=== PATIENT | male | born 1935 | race Caucasian/White ===

== ENCOUNTER 2023-03-20 10:00 | Outpatient (CLI) | payer MEDICARE, SELFPAY | END 2023-03-20 10:01 | disposition home or self-care (01) | LOC: NFLDREF 03-23 03:21 | PROVIDERS: PCP Family Medicine; Referring Provider Family Medicine; Visit Provider Family Medicine | DX: C61 Malignant neoplasm of prostate (principal); I25.10 Atherosclerotic heart disease of native coronary artery without angina pectoris; I10 Essential (primary) hypertension; M16.11 Unilateral primary osteoarthritis, right hip; E78.5 Hyperlipidemia, unspecified; D64.9 Anemia, unspecified; Z12.5 Encounter for screening for malignant neoplasm of prostate | CPT/HCPCS: 80053; 80061; 84153 ==

== ENCOUNTER 2023-09-13 13:25 | Outpatient (CLI) | payer MEDICARE, SELFPAY ==
--- OUTSIDE RECORDS SUMMARY | 2023-09-13 13:28 | XMS_ITS | Continuity of Care Document ---
Author Name [facility] Organization [facility] Care Team Providers Care Consulting Psychologist Name Role Phone [facility] Unavailable Unavailable Problems Combined list of problems from Department of Defense and Veterans Affairs facilities. It does not include entries that were removed or entered in error. 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 Raymon Herbert, [facility]. Estrada,[facility] HeartOct 2011 Entered By: LISA DE Comment: Urology- Dr. Gómez [facility] Coronary arteriosclerosis Active Condition Jul 08 6 Entered By: LISA DE Comment: 2002 PTCA ? target. F.C.I [facility] Erectile Dysfunction * (ICD-9-CM 302.72) Active Condition [facility] Hyperlipidemia Active Condition [facility] Hypertensive disorder Active Condition [facility] Obstructive sleep apnea syndrome (SNOMED CT [id number]) Active Condition [facility] Personal History of Colonic Polyps Active Condition Nov 12, 2007 Entered By: PATRICIA SANDS Comment: Colonoscopy 10/2007 [facility] Sensorineural Hearing Loss * (ICD-9-CM 389.10) Active Condition [facility] Sleep apnea Active Condition [facility] Diagnosis: ICD-10-CM 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 Medication Details Route Status Patient Instructions Prescription Expires Prescription Number Last Dispense Date Ordering Provider Order Date Order Qty Source AMLODIPINE BESYLATE 5MG TAB TAKE ONE TABLET BY MOUTH EVERY DAY ORALLY ACTIVE 02/02/2024 [id number] ELVIN LÓPEZ 2022 90 [facility] AMLODIPINE BESYLATE 5MG TAB TAKE ONE TABLET BY MOUTH EVERY DAY ORALLY DISCONT INUED 05/03/2023 [id number] ELVIN LÓPEZ 2021 90 [facility] ASCORBIC ACID 500MG TAB TAKE TWO TABLETS BY MOUTH EVERY DAY ORALLY ACTIVE Zamzam DE E 2012 [facility] ASPIRIN 81MG TAB,EC TAKE ONE TABLET BY MOUTH ORALLY ACTIVE ELVIN LÓPEZ 2020 [facility] ATORVASTATI N CA 80MG TAB TAKE ONE TABLET BY MOUTH DAILY FOR CHOLESTE ROL ORALLY ACTIVE 05/19/2024 [id number] ELVIN LÓPEZ 2022 90 [facility] ATORVASTATI N CA 80MG TAB TAKE ONE TABLET BY MOUTH DAILY FOR CHOLESTE ROL ORALLY DISCONT INUED 03/10/2023 [id number] ELVIN LÓPEZ 2022 90 [facility] CALCIUM CITRATE 315MG/VITAM IN D 250UNT TAB TAKE ONE TABLET BY MOUTH EVERY DAY ORALLY ACTIVE Zamzam DE E 2015 [facility] CETIRIZINE TAB TAKE ACTIVE ELVIN LÓPEZ 2020 [facility] EZETIMIBE 10MG TAB TAKE ONE TABLET BY MOUTH EVERY DAY FOR CHOLESTE ROL ORALLY ACTIVE 08/07/2024 [id number] ELVIN LÓPEZ 2023 90 [facility] EZETIMIBE 10MG TAB TAKE ONE TABLET BY MOUTH EVERY DAY FOR CHOLESTE ROL ORALLY DISCONT INUED 09/14/2023 [id number] ELVIN LÓPEZ 2022 90 [facility] FERROUS SULFATE TAB TAKE 65MG 2 TABS BY MOUTH EVERY DAY ORALLY ACTIVE Zamzam DE 2015 [facility] GLUCOSAMINE CAP/TAB TAKE BY MOUTH EVERY DAY ORALLY ACTIVE Zamzam DE [address] [facility] INCONT LINER DEPEND GUARDS USE 1 PAD DIRECTED MISCEL LANEOU S ACTIVE 05/19/2024 [id number] MOLINA AG NDE Y 2023 104 [facility] INCONT LINER DEPEND GUARDS USE 1 PAD DIRECT[address] MISCEL L[address]OU S DISCONT INUED 04/13/2023 [id number] MOLINA AG NDE Y 2021 104 [facility] ISOSORBIDE MONONITRATE 30MG TAB,SA TAKE ONE TABLET BY MOUTH EVERY DAY ORALLY ACTIVE ELVIN LÓPEZ 2022 [facility] [place] POTASSIUM 100MG TAB TAKE ONE TABLET BY MOUTH EVERY DAY FOR BLOOD PRESSURE ORALLY SUSPEND ED 05/19/2024 [id number] ELVIN LÓPEZ 2023 90 [facility] [place] POTASSIUM 100MG TAB TAKE ONE TABLET BY MOUTH EVERY DAY FOR BLOOD PRESSURE ORALLY DISCONT INUED 05/19/2023 [id number] ELVIN LÓPEZ 2021 90 [facility] LUTEIN CAP/TAB TAKE BY MOUTH EVERY DAY ORALLY ACTIVE Zamzam DE 2015 [facility] LYSINE TAB TAKE ACTIVE DOMINIC RICHARD 2008 [facility] MULTIVITAMI N/MINERALS SENIOR FORMULA TAB TAKE ONE TABLET BY MOUTH EVERY DAY ORALLY ACTIVE Zamzam DE E 2015 [facility] Allergies, Adverse Reactions, Alerts Combined list of allergies from Department of [facility] and [facility] facilities. It does not include entries that were removed or entered in error. Substance Category Reaction Severity Reaction type Status Date Reported Comments Source LISINOPRIL Propensity to adverse reactions to drug (finding) active 8 [facility] TRAZODONE Propensity to adverse reactions to drug (finding) Nightmares active 8 [facility] Immunizations Combined list of available immunizations from the Department of [facility] and Veterans [facility] facilities. 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 Source INFLUENZA, HIGH-DOSE, QUADRIVALENT 2022 197 complet [facility] RSV, RECOMBINANT, PROTEIN SUBUNIT RSVPREF, ADJUVANT RECONSTITUTED , 0.5 ML, PF 2022 303 complet [facility] COVID-19 (MODERNA), MRNA, LNP-S, PF, 50 MCG/0.5 ML (AGES 12+ YEARS) 2022 312 complet [facility] TDAP 2021 115 complet [facility] COVID-19 (PFIZER), MRNA, LNP-S, BIVALENT, PF, 30 MCG/0.3 ML DOSE 2021 300 complet [facility] INFLUENZA, HIGH-DOSE, QUADRIVALENT 2021 197 complet [facility] INFLUENZA, UNSPECIFIED FORMULATION 2021 88 complet [facility] COVID-19 (PFIZER), MRNA, LNP-S, PF, 30 MCG/0.3 ML DOSE, MORGAN-SUCROSE (AGES 12+ YEARS) 2021 217 complet [facility] INFLUENZA, HIGH-DOSE, QUADRIVALENT 2020 197 complet [facility] INFLUENZA, UNSPECIFIED FORMULATION 2020 88 complet [facility] COVID-19 (PFIZER), MRNA, LNP-S, PF, 30 MCG/0.3 ML DOSE 3 2020 208 complet [facility] TD (ADULT), 2 LF TETANUS TOXOID, PRESERVATIVE FREE, ADSORBED 2020 09 complet ed [employer],U [id number], [id number] [facility] COVID-19 (PFIZER), MRNA, LNP-S, PF, 30 MCG/0.3 ML DOSE 2 2020 208 complet ed [facility] COVID-19 (PFIZER), MRNA, LNP-S, PF, 30 MCG/0.3 ML DOSE 1 2020 208 complet ed [facility] INFLUENZA, INJECTABLE, QUADRIVALENT, PRESERVATIVE FREE 2019 150 complet ed [facility] INFLUENZA, UNSPECIFIED FORMULATION 2019 88 complet ed [facility] ZOSTER RECOMBINANT 2 2018 187 complet ed [facility] INFLUENZA, HIGH DOSE SEASONAL 2018 135 complet ed [facility] INFLUENZA, SEASONAL, INJECTABLE 2018 141 complet ed [facility] ZOSTER RECOMBINANT 2018 187 complet ed [facility] ZOSTER RECOMBINANT 1 2018 187 complet ed [facility] INFLUENZA, HIGH DOSE SEASONAL 2017 135 complet ed [facility] INFLUENZA, HIGH DOSE SEASONAL 2017 135 complet ed [facility] INFLUENZA, HIGH DOSE SEASONAL 2016 135 complet ed [facility] INFLUENZA, HIGH DOSE SEASONAL 2015 135 complet ed [facility] PNEUMOCOCCAL CONJUGATE PCV 13 2015 133 complet ed [facility],M20 640,09/05 [facility] INFLUENZA, INJECTABLE, QUADRIVALENT 2014 158 complet ed [facility] INFLUENZA, HIGH DOSE SEASONAL 2014 135 complet ed [facility] INFLUENZA, UNSPECIFIED FORMULATION 2013 88 complet ed [facility] INFLUENZA, UNSPECIFIED FORMULATION 2012 88 complet ed [facility] INFLUENZA, SEASONAL, INJECTABLE, PRESERVATIVE FREE 2011 140 complet ed [facility] INFLUENZA, UNSPECIFIED FORMULATION 2011 88 complet ed [facility] INFLUENZA, UNSPECIFIED FORMULATION 2010 88 complet ed [facility] TDAP 2010 115 complet ed [facility] ZOSTER LIVE 2010 121 complet ed [facility] INFLUENZA, UNSPECIFIED FORMULATION 2009 88 complet ed [facility] INFLUENZA, UNSPECIFIED FORMULATION 2008 88 complet ed [facility] PNEUMOCOCCAL, UNSPECIFIED FORMULATION 2007 109 complet ed [facility] PNEUMOCOCCAL POLYSACCHARID E PPV23 2007 33 complet ed [facility] TD (ADULT), 2 LF TETANUS TOXOID, PRESERVATIVE FREE, ADSORBED 2007 09 complet ed [facility] TD (ADULT), 5 LF TETANUS TOXOID, PRESERVATIVE FREE, ADSORBED 2006 113 complet ed [facility] TD(ADULT) UNSPECIFIED FORMULATION 2006 139 complet ed [facility] INFLUENZA (HISTORICAL) 2006 88 complet ed [facility] INFLUENZA, SEASONAL, INJECTABLE 2005 141 complet ed [facility] INFLUENZA, SEASONAL, INJECTABLE 2003 141 complet ed [facility] INFLUENZA, SEASONAL, INJECTABLE 2002 141 complet ed [facility] Results Combined list of recent chemistry, hematology and other laboratory results from Department of Defense and Veterans Affairs, ranging from 15 months to all on record, depending upon the facility. Order Name Results Value Reference Range Date Interpretation Specimen Comments Source CBC LEUKOCYTES [#/VOLUME] IN BLOOD BY AUTOMATED COUNT 5.82 4.0 - 11.0 06/29 Specimen Type: BLOOD No comment entered. Ordering Provider: VERONICA LÓPEZ Report Released Date/Time: Jun 29, 2022 10:25 AM Reporting Lab: [facility] [place] [address] Performing Lab: [facility] [place] [address] [facility] CBC ERYTHROCYTE S [#/VOLUME] IN BLOOD BY AUTOMATED COUNT 4.44 4.6 - 6.2 06/29 L Specimen Type: BLOOD No comment entered. Ordering Provider: VERONICA LÓPEZ Report Released Date/Time: Jun 29, 2022 10:25 AM Reporting Lab: [facility] [place] [address] Performing Lab: [facility] [place] [address] [place] [facility] CBC HEMOGLOBIN [MASS/VOLUM E] IN BLOOD 13.2 13.5 - 17.9 06/29 L Specimen Type: BLOOD No comment entered. Ordering Provider: VERONICA LÓPEZ Report Released Date/Time: Jun 29, 2022 10:25 AM Reporting Lab: [facility] [place] [address] Performing Lab: [facility] [place] [address] [place] [facility] CBC HEMATOCRIT [VOLUME FRACTION] OF BLOOD BY AUTOMATED COUNT 39.8 41 - 54 06/29 L Specimen Type: BLOOD No comment entered. Ordering Provider: VERONICA LÓPEZ Report Released Date/Time: Jun 29, 2022 10:25 AM Reporting Lab: [facility] [place] [address] Performing Lab: [facility] [place] [address] [place] [facility] CBC MCV [ENTITIC VOLUME] BY AUTOMATED COUNT 89.6 80 - 100 06/29 Specimen Type: BLOOD No comment entered. Ordering Provider: VERONICA LÓPEZ Report Released Date/Time: Jun 29, 2022 10:25 AM Reporting Lab: [facility] [place] [address] Performing Lab: [facility] [place] [address] [place] [facility] CBC MCH [ENTITIC MASS] BY AUTOMATED COUNT 29.7 27 - 33 06/29 Specimen Type: BLOOD No comment entered. Ordering Provider: VERONICA LÓPEZ Report Released Date/Time: Jun 29, 2022 10:25 AM Reporting Lab: [facility] [place] [address] Performing Lab: [facility] [place] [address] [place] [facility] CBC MCHC [MASS/VOLUM E] BY AUTOMATED COUNT 33.2 32.0 - 37.5 06/29 Specimen Type: BLOOD No comment entered. Ordering Provider: VERONICA LÓPEZ Report Released Date/Time: Jun 29, 2022 10:25 AM Reporting Lab: [facility] [place] [address] Performing Lab: [facility] [place] [address] [place] [facility] CBC PLATELETS [#/VOLUME] IN BLOOD BY AUTOMATED COUNT 201 150 - 400 06/29 Specimen Type: BLOOD No comment entered. Ordering Provider: VERONICA LÓPEZ Report Released Date/Time: Jun 29, 2022 10:25 AM Reporting Lab: [facility] [place] [address] Performing Lab: [facility] [place] [address] [place] [facility] CBC PLATELET MEAN VOLUME [ENTITIC VOLUME] IN BLOOD BY AUTOMATED COUNT 10.1 7.4 - 10.4 06/29 Specimen Type: BLOOD No comment entered. Ordering Provider: VERONICA LÓPEZ Report Released Date/Time: Jun 29, 2022 10:25 AM Reporting Lab: [facility] [place] [address] Performing Lab: [facility] [place] [address] [place] [facility] CBC ERYTHROCYTE DISTRIBUTIO N WIDTH [RATIO] BY AUTOMATED COUNT 15.4 11.5 - 14.5 06/29 H Specimen Type: BLOOD No comment entered. Ordering Provider: VERONICA LÓPEZ Report Released Date/Time: Jun 29, 2022 10:25 AM Reporting Lab: [facility] [place] [address] Performing Lab: [facility] [place] [address] [place] [facility] COMPREHEN SIVE METABOLIC PANEL+MG CREATININE [MASS/VOLUM E] IN SERUM OR PLASMA 0.8 0.7 - 1.2 06/29 Specimen Type: PLASMA No comment entered. Ordering Provider: VERONICA LÓPEZ Report Released Date/Time: Jun 29, 2022 10:25 AM Reporting Lab: [facility] [place] [address] Performing Lab: [facility] [place] [address] [place] [facility] COMPREHEN SIVE METABOLIC PANEL+MG UREA NITROGEN [MASS/VOLUM E] IN SERUM OR PLASMA 23 8 - 26 06/29 Specimen Type: PLASMA No comment entered. Ordering Provider: VERONICA LÓPEZ Report Released Date/Time: Jun 29, 2022 10:25 AM Reporting Lab: [facility] [place] [address] Performing Lab: [facility] [place] [address] [place] [facility] COMPREHEN SIVE METABOLIC PANEL+MG GLUCOSE [MASS/VOLUM E] IN SERUM OR PLASMA 88 70 - 100 06/29 Specimen Type: PLASMA No comment entered. Ordering Provider: VERONICA LÓPEZ Report Released Date/Time: Jun 29, 2022 10:25 AM Reporting Lab: [facility] [place] [address] Performing Lab: [facility] [place] [address] [place] [facility] COMPREHEN SIVE METABOLIC PANEL+MG SODIUM [MOLES/VOLU ME] IN SERUM OR PLASMA 139 136 - 145 06/29 Specimen Type: PLASMA No comment entered. Ordering Provider: VERONICA LÓPEZ Report Released Date/Time: Jun 29, 2022 10:25 AM Reporting Lab: [facility] [place] [address] Performing Lab: [facility] [place] [address] [place] [facility] COMPREHEN SIVE METABOLIC PANEL+MG POTASSIUM [MOLES/VOLU ME] IN SERUM OR PLASMA 4.2 3.5 - 5.1 06/29 Specimen Type: PLASMA No comment entered. Ordering Provider: VERONICA LÓPEZ Report Released Date/Time: Jun 29, 2022 10:25 AM Reporting Lab: [facility] [place] [address] Performing Lab: [facility] [place] [address] [place] [facility] COMPREHEN SIVE METABOLIC PANEL+MG CHLORIDE [MOLES/VOLU ME] IN SERUM OR PLASMA 109 98 - 107 06/29 H Specimen Type: PLASMA No comment entered. Ordering Provider: VERONICA LÓPEZ Report Released Date/Time: Jun 29, 2022 10:25 AM Reporting Lab: [facility] [place] [address] Performing Lab: [facility] [place] [address] [place] [facility] COMPREHEN SIVE METABOLIC PANEL+MG CARBON DIOXIDE, TOTAL [MOLES/VOLU ME] IN SERUM OR PLASMA 23 22 - 29 06/29 Specimen Type: PLASMA No comment entered. Ordering Provider: VERONICA LÓPEZ Report Released Date/Time: Jun 29, 2022 10:25 AM Reporting Lab: [facility] [place] [address] Performing Lab: [place] [address] [place] [facility] COMPREHEN SIVE METABOLIC PANEL+MG CALCIUM [MASS/VOLUM E] IN SERUM OR PLASMA 9.3 8.4 - 10.2 06/29 Specimen Type: PLASMA No comment entered. Ordering Provider: VERONICA LÓPEZ Report Released Date/Time: Jun 29, 2022 10:25 AM Reporting Lab: [place] [address] Performing Lab: [place] [address] [place] [facility] COMPREHEN SIVE METABOLIC PANEL+MG PROTEIN [MASS/VOLUM E] IN SERUM OR PLASMA 6.7 6.0 - 8.3 06/29 Specimen Type: PLASMA No comment entered. Ordering Provider: VERONICA LÓPEZ Report Released Date/Time: Jun 29, 2022 10:25 AM Reporting Lab: [facility] [place] [address] Performing Lab: [facility] [place] [address] [place] [facility] COMPREHEN SIVE METABOLIC PANEL+MG ALBUMIN [MASS/VOLUM E] IN SERUM OR PLASMA 3.8 3.5 - 5.2 06/29 Specimen Type: PLASMA No comment entered. Ordering Provider: VERONICA LÓPEZ Report Released Date/Time: Jun 29, 2022 10:25 AM Reporting Lab: [facility] [place] [address] Performing Lab: [facility] [place] [address] [place] [facility] COMPREHEN SIVE METABOLIC PANEL+MG BILIRUBIN.T OTAL [MASS/VOLUM E] IN SERUM OR PLASMA 0.4 0.2 - 1.2 06/29 Specimen Type: PLASMA No comment entered. Ordering Provider: VERONICA LÓPEZ Report Released Date/Time: Jun 29, 2022 10:25 AM Reporting Lab: [facility] [place] [address] Performing Lab: [facility] [place] [address] [place] [facility] COMPREHEN SIVE METABOLIC PANEL+MG MAGNESIUM [MASS/VOLUM E] IN SERUM OR PLASMA 2.2 1.6 - 2.6 06/29 Specimen Type: PLASMA No comment entered. Ordering Provider: VERONICA LÓPEZ Report Released Date/Time: Jun 29, 2022 10:25 AM Reporting Lab: [facility] [place] [address] Performing Lab: [facility] [place] [address] [place] [facility] COMPREHEN SIVE METABOLIC PANEL+MG ANION GAP IN SERUM OR PLASMA 7 5 - 15 06/29 Specimen Type: PLASMA No comment entered. Ordering Provider: VERONICA LÓPEZ Report Released Date/Time: Jun 29, 2022 10:25 AM Reporting Lab: [facility] [place] [address] Performing Lab: [facility] [place] [address] [place] [facility] COMPREHEN SIVE METABOLIC PANEL+MG ALKALINE PHOSPHATASE [ENZYMATIC ACTIVITY/VO LUME] IN SERUM OR PLASMA 92 40 - 150 06/29 Specimen Type: PLASMA No comment entered. Ordering Provider: VERONICA LÓPEZ Report Released Date/Time: Jun 29, 2022 10:25 AM Reporting Lab: [facility] [place] [address] Performing Lab: [facility] [place] [address] [place] [facility] COMPREHEN SIVE METABOLIC PANEL+MG ALANINE AMINOTRANSF ERASE [ENZYMATIC ACTIVITY/VO LUME] IN SERUM OR PLASMA 18 <55 - 55 06/29 Specimen Type: PLASMA No comment entered. Ordering Provider: VERONICA LÓPEZ Report Released Date/Time: Jun 29, 2022 10:25 AM Reporting Lab: [facility] [place] [address] Performing Lab: [facility] [place] [address] [place] [facility] COMPREHEN SIVE METABOLIC PANEL+MG ASPARTATE AMINOTRANSF ERASE [ENZYMATIC ACTIVITY/VO LUME] IN SERUM OR PLASMA 21 <34 - 34 06/29 Specimen Type: PLASMA No comment entered. Ordering Provider: VERONICA LÓPEZ Report Released Date/Time: Jun 29, 2022 10:25 AM Reporting Lab: [facility] [place] [address] Performing Lab: [facility] [place] [address] [place] [facility] COMPREHEN SIVE METABOLIC PANEL+MG GLOMERULAR FILTRATION RATE/1.73 SQ M.PREDICTED [VOLUME RATE/AREA] IN SERUM, PLASMA OR BLOOD BY CREATININE- BASED FORMULA (CKD-EPI) 87 60 06/29 Specimen Type: PLASMA No comment entered. Ordering Provider: VERONICA LÓPEZ Report Released Date/Time: Jun 29, 2022 10:25 AM Reporting Lab: [facility] [place] [address] Performing Lab: [facility] [place] [address] [place] [facility] HEMOGLOBI N A1C HEMOGLOBIN A1C/HEMOGLO BIN.TOTAL IN BLOOD 5.9 4.0 - 6.0 06/29 Specimen Type: BLOOD Comment: Values obtained from A1C measurement s can vary. For typical A1C assays, a reported value of 7.0 could actually be between 6.7 and 7.3 if measured by a reference method. A reported value of 9.0 could actually be between 8.7 and 9.3. Ref: http://[email or web address] ngsp.org/[place] Pdata.asp Ordering Provider: VERONICA LÓPEZ Report Released Date/Time: Jun 29, 2022 10:25 AM Reporting Lab: [facility] [place] [address] Performing Lab: [facility] [place] [address] [place] [facility] PSA PROSTATE SPECIFIC AG [MASS/VOLUM E] IN SERUM OR PLASMA 0.07 <4.00 - 4.00 06/29 Specimen Type: SERUM No comment entered. Ordering Provider: VERONICA LÓPEZ Report Released Date/Time: Jun 29, 2022 10:25 AM Reporting Lab: [facility] [place] [address] Performing Lab: [facility] [place] [address] [place] [facility] LIPID PANEL,NON -FASTING CHOLESTEROL [MASS/VOLUM E] IN SERUM OR PLASMA 176 <199 - 199 06/29 Specimen Type: PLASMA No comment entered. Ordering Provider: VERONICA LÓPEZ Report Released Date/Time: Jun 29, 2022 02:27 PM Reporting Lab: [facility] [place] [address] Performing Lab: [facility] [place] [address] [place] [facility] LIPID PANEL,NON -FASTING CHOLESTEROL IN HDL [MASS/VOLUM E] IN SERUM OR PLASMA 66 40 06/29 Specimen Type: PLASMA No comment entered. Ordering Provider: VERONICA LÓPEZ Report Released Date/Time: Jun 29, 2022 02:27 PM Reporting Lab: [facility] [place] [address] Performing Lab: [facility] [place] [address] [place] [facility] LIPID PANEL,NON -FASTING CHOLESTEROL IN LDL [MASS/VOLUM E] IN SERUM OR PLASMA BY CALCULATION 93 <99 - 99 06/29 Specimen Type: PLASMA No comment entered. Ordering Provider: VERONICA LÓPEZ Report Released Date/Time: Jun 29, 2022 02:27 PM Reporting Lab: [facility] [place] [address] Performing Lab: [facility] [place] [address] [place] [facility] LIPID PANEL,NON -FASTING CHOLESTEROL IN VLDL [MASS/VOLUM E] IN SERUM OR PLASMA BY CALCULATION 17 <29 - 29 06/29 Specimen Type: PLASMA No comment entered. Ordering Provider: VERONICA LÓPEZ Report Released Date/Time: Jun 29, 2022 02:27 PM Reporting Lab: [facility] [place] [address] Performing Lab: [facility] [place] [address] [place] [facility] LIPID PANEL,NON -FASTING CHOLESTEROL NON HDL [MASS/VOLUM E] IN SERUM OR PLASMA 110 <129 - 129 06/29 Specimen Type: PLASMA No comment entered. Ordering Provider: VERONICA LÓPEZ Report Released Date/Time: Jun 29, 2022 02:27 PM Reporting Lab: [facility] [place] [id number] Performing Lab: [facility] [place] [address] [place] [facility] LIPID PANEL,NON -FASTING TRIGLYCERID E [MASS/VOLUM E] IN SERUM OR PLASMA 86 <149 - 149 06/29 Specimen Type: PLASMA No comment entered. Ordering Provider: VERONICA LÓPEZ Report Released Date/Time: Jun 29, 2022 02:27 PM Reporting Lab: [facility] [place] [id number] Performing Lab: [facility] [place] [address] [place] [facility] Vital Signs Combined list of inpatient and outpatient Vital Signs from Department of Defense and Veterans Affairs, ranging from 12 months to all on record, depending upon the facility. Vital Sign Value Date Comments Source Encounters Combined list of: 1) Encounters from Department of Veterans Affairs facilities going back up to thelast 18 months. 2) Encounters from the Department of Defense facilities going back up to 280 months. Location Location Details Encounter Type Encounter Number Reason For Visit Attending Provider ADM Date DC Date Status Disposition Source [place] [facility] Outpatient Encounter [id number] 03/12 [facility] [place] [facility] Outpatient Encounter [id number] 03/14 [place] [facility] [place] [facility] Outpatient Encounter [id number] 03/24 [place] [facility] [place] [facility] Outpatient Encounter [id number] 03/28 [place] [facility] [place] [facility] Outpatient Encounter [id number] 04/06 [place] [facility] [place] [facility] Outpatient Encounter [id number] 04/12 [place] [facility] [place] [facility] Outpatient Encounter [id number] 04/21 [place] [facility] [place] [facility] Outpatient Encounter [id number] 05/18 [place] [facility] [place] [facility] Outpatient Encounter [id number] 06/[address] 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
Kaden LÓPEZ 06/29 [place] [facility] [place] [facility] Outpatient Encounter [id number] 07/20 [place] [facility] [place] [facility] SELF CARE MNGMENT TRAINING [id number] Diagnos is: ICD-10- CM N39.3 Stress inconti nence (female ) (male)< br/> KEENA MATUTE 08/[address] [facility] Outpatient Encounter [id number] 08/[address] [facility] SELF CARE MNGMENT TRAINING [id number] Diagnos is: ICD-10- CM N39.46 Mixed inconti nence<b r/> KEENA MATUTE 08/[address] [facility] SELF CARE MNGMENT TRAINING [id number] Diagnos is: ICD-10- CM N39.46 Mixed inconti nence<b r/> KEENA MATUTE 09/[address] [facility] Outpatient Encounter [id number] 09/[address] [facility] SELF CARE MNGMENT TRAINING [id number] Diagnos is: ICD-10- CM N39.46 Mixed inconti nence<b r/> KEENA MATUTE 09/21 [facility] IS [facility] SELF CARE MNGMENT TRAINING [id number] Diagnos is: ICD-10- CM N39.46 Mixed inconti nence<b r/> GIOVANIKEENA WALLERY Warren 10/19 [place] [facility] [place] [facility] Outpatient Encounter [id number] 02/23 [place] [facility] [place] [facility] Outpatient Encounter [id number] 03/03 [place] [facility] [place] [facility] Outpatient Encounter [id number] 05/01 [place] [facility] [place] [facility] Outpatient Encounter [id number] 05/08 [place] [facility] [place] [facility] Outpatient Encounter [id number] 05/10 [place] [facility] [place] [facility] Outpatient Encounter [id number] 05/[address] 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
Kaden LÓPEZ 08/06 [facility] Social History Combined list of available smoking, tobacco, and other social history from Department of Defense and [facility] Affairs facilities. Social History Type Response Date Comment Sourc e Tobacco smoking status ALIS [facility]-TOBACCO FORMER USER 08/07/2023 [facility] of [facility] OR MORE 08/07/2023 [facility] History of tobacco use AK-TOBACCO FORMER USER 06/29/2022 [facility] History of tobacco use AK-TOBACCO FORMER USER 05/07/2021 [facility] History of tobacco use AK-TOBACCO FORMER USER 09/20/2018 [facility] History of tobacco use FORMER TOBACCO US ER 7Y OR GREATER 07/25/2017 [facility] History of tobacco use FORMER TOBACCO US ER 7Y OR GREATER 07/08/2015 [facility] History of tobacco use FORMER TOBACCO US ER 7Y OR GREATER 04/22/2014 [facility] History of tobacco use FORMER TOBACCO US ER 7Y OR GREATER 11/12/2007 [facility] Plan of Care List of future care activities from Department [facility] facilities. Additional future care activities may be listed in the Assessment and Plan section. Date/Time Care Activity Care Activity Detail Facili ty 08/07/2023 Consult Order SLEEP [facility] IC OUTPT Cons Nail Kegger's Choice [facility] Advance Directives List of completed, amended, or rescinded Advance Directives on record at [facility] facilities. An actual copy of the Directive is not included. Date Advance Directive Provider Source 08/04/2007 ADVANCE DIRECTIVE SOHAM AU [facility]
--- OUTSIDE RECORDS SUMMARY | 2023-09-13 13:28 | XMS_ITS | Clinical Summary ---
Author Name Unknown Organization [facility] Address [place], [place] [address] Care Team Providers Care Manager Star Name Role Phone Trip Villalobos MD Primary Care Provider [phone] Allergies Active Allergy Reactions Criticality Noted Date Comments Lisinopril Cough 07/27/2018 Dry cough Trazodone *Unknown 03/28/2023 Unlisted Allergen (Include Detail In Comments) *Unknown,*Unknown - Follow up needed 03/10/2016 Medications Medication Sig Dispensed Refills Start Date End Date Status ASPIRIN 81 MG TAB, DELAYED RELEASE one tablet daily 0 03/01/2008 Active L-LYSINE 500 MG TAB one tablet daily 0 03/01/2008 Active CITRACAL + D 250 MG-200 UNIT TAB 0 03/01/2008 Active multivitamin (MVI) tablet Take 1 tablet by mouth once daily. 0 12/15/2012 Active nitroglycerin (NITROSTAT) 0.[address] 1 tablet under the tongue every 5 minutes if needed for Chest Pain. 0 12/15/2012 Active amLODIPine (NORVASC) 5 mg tablet Take 5 mg by mouth once daily. 12/14/2016 Active atorvastatin (LIPITOR) 80 mg tabletIndications:Pure hypercholesterolemia Take 1 tablet by mouth once daily. 0 12/30/2016 Active CPAPIndications:Sleep apnea, unspecified type CPAP machine for home use at pressure: , Heated humidifier x 1, Humidifier chamber x 1, Full face mask with cushion x 1, Heated tubing x 1, Headgear x 1, Filters: Disposable x 1pk & Reusable x 1pk, Length of Need: 99 months, Frequency of use: Daily 1 unit 12/30/2016 Active ascorbic acid, vitamin C, (VITAMIN C) 1,000 mg tablet Take 1 tablet by mouth once daily. 0 02/16/2017 Active iron,carbonyl-vitamin C (VITRON-C) 65 mg iron- 125 mg Delayed-Release tablet Take 1 Tab by mouth 2 times daily with meals. 0 02/16/2017 Active glucosamine-chondroitin, 500-400 mg, (COSAMIN DS 500/400) 500-400 mg cap Take 1 capsule by mouth 2 times daily. 0 02/16/2017 Active uk-qv-vfagfz-zeax-bilber- hb277 (MACULAR HEALTH FORMULA) 5-1-7.5 mg cap Take by mouth. 0 02/16/2017 Active losartan (COZAAR) 100 mg tablet Take 100 mg by mouth. 07/10/2019 Active amoxicillin-clavulanate 875-125 mg tablet (AUGMENTIN) 05/09/2022 Active oxyCODONE (ROXICODONE) 5 mg immediate release tabletIndications:Lumbar radiculopathy One tablet at HS as needed for pain 20 Tablet 12/05/2022 Active oxyCODONE (ROXICODONE) 5 mg immediate release tabletIndications:Spinal stenosis, lumbar region, with neurogenic claudication Take 1 Tablet (5 mg) by mouth every 4 hours if needed for Pain. 15 Tablet 03/30/2023 Active acetaminophen 325 mg cap Take 650 mg by mouth continuous as needed. Q6H PRN Active isosorbide mononitrate (IMDUR) 30 mg extended release tablet 24 Hour Take 1 Tablet by mouth once daily. 06/29/2022 Active psyllium husk, with sugar, (METAMUCIL) 3.4 gram packet Mix 1 Packet in liquid then take by mouth once daily if needed. Active carvediloL (COREG) 6.25 mg tablet TAKE ONE TABLET BY MOUTH TWICE DAILY with meals* 05/11/2023 Active Hospital, Clinic, or Other Facility Administered Medication Ordered Dose Route Frequency Start Date End Date Status betamethasone acet,sod phos 12 mg injection (CELESTONE SOLUSPAN)Indications:Chron ic left shoulder pain,Osteoarthritis of left glenohumeral joint 12 mg IArtic ONE TIME 08/16/2023 08/16/2023 E nded Active Problems Problem Noted Date Diagnosed Date Spinal stenosis, lumbar aminata on, with neurogenic claudication 03/30/2023 Sleep apnea 12/30/2016 Arthritis of right hip 12/30/2016 SI joint arthritis 12/30/2016 DDD (degenerative disc disease), lumbar 12/31/19 17 Varicose veins 12/15/2012 Coronary atherosclerosis of unspecified type of vessel, [place] or graft 11/06/2007 Overview: [place] in 1993 angioplasty Unspecified essential hypertension 11/06/2007 Pure hypercholesterolemia 11/06/2007 Personal history of malignant neoplasm of prosta te 11/06/2007 Encounters Date Type Department Care Team Description 08/16/2023 9:50 AM CDT Procedure Only [facility] [address] [place] [address] Oziel Loya MD Procedure (Left shoulder ultrasound guided... 08/16/2023 Travel from Last 3 Months Immunizations Name Administration Dates Next Due COVID-19 vaccine (Lecture[employer]-Bio NTech 30mcg/0.3mL) 12YO+ MORGAN-SUCROSE PF, MDV 09/06/2021 Influenza Virus, Unspecified 03/12/2022, 03/10/2021,03/02/2020,2018,02/19/2014,02/28/2013,02/06/2012,1 ,02/26/2010,01/16/2009, 007 Influenza, High-dose Inactivated 019,02/20/2018,03/15/2017,2015,02/19/2015 Influenza, High-dose Quadriv alent Inactivated 03/14/2022,03/10/2021 Influenza, IIV3 (Age 6-35 mos) 02/08/2012 Influenza, IIV3 (Age >=3 years) 02/27/2006,03/03,04/02/2003 Influenza, IIV4 03/02/2020 Influenza, IIV4 (=>6mos) MDV 02/20/2015 Pneumococcal Poly,23-Valent (Pneumovax) 11/12/2007 Pneumococcal conj 13-Valent (Prevnar 13) 07/08/2015 Pneumococcal, Unspecified 11/12/2007 TD, UNSPECIFIED 03/22/2007 Td (Age >=7 Years) 08/13/2020,08/12/2007 Td, Preservative Free (age > = 7 Years) 04/05/2007 Tdap 04/06/2022,06/21/2010 Zoster (Shingrix-RZV, recombinant) 05/01/2019,,02/02/2019 Zoster (Zostavax-ZVL, live) 06/21/2010 Social History Tobacco Use Types Packs/Day Years Used Date Smoking Tobacco: Former Cigarettes Q uit: 05/28/1992 Smokeless Tobacco: Never Tobacco Cessation:Counseling Given: Yes Alcohol Use Standard Drinks/Week Comments No 0 (1 standard drink = 0.6 oz pur e alcohol) Social Connections Answer Date Recorded Frequency of Communication with Friends and Fami ly Not on file 11/10/2022 Financial Resource Strain Answer Date R ecorded Difficulty of Paying Living Expenses Not on file 05/20/2021 Difficulty of Paying Living Expenses Not on file 05/20/2021 Sex and Gender Information Value Date Recorded Sex Assigned at Not on file Gender Identity Not on file Sexual Orientation Not on file Obstetrics History Last Filed Vital Signs Vital Sign Reading Time Taken Comments Blood Pressure 127/76 08/16/2023 9:56 AM CDT Pulse 67 08/16/2023 9:56 AM CDT Temperature 36.3 ??C (97.4 ??F) 08/16/2023 9:56 AM CD T Respiratory Rate 16 03/30/2023 1:00 PM GREENHOUSE SUPERINTENDENT Oxygen Saturation 98% 08/16/2023 9:56 AM CDT Inhaled Oxygen Concentration - - Weight 99.9 kg (220 lb 3.2 oz) 06/01/2023 8:10 A M GREENHOUSE SUPERINTENDENT shoes on Height 188 cm (6' 2) 03/30/2023 6:34 AM GREENHOUSE SUPERINTENDENT Body Mass Index 28.27 03/30/2023 6:34 AM GREENHOUSE SUPERINTENDENT Plan of Treatment Upcoming Encounters Date Type Department Care Team (Late st Contact Info) Description 09/28/2023 10:40 AM CDT Office Visit [facility] [address] [facility] [place] [address] Greyson Sloan MD [address] [facility] [place] [address] Health Maintenance Due Date Last Done Comments Medicare Wellness for age 65+ 2002 Depression screening for age 12+ 12/30/2017 12/31/19 17 BMI (ht and wt on same day) for age 18+ 05/18/2021 05/18/2020, 12/30/2016 Influenza for age 65+ 01/21/2024 03/14/2022 , 03/12/2022, 03/10/2021, Additional history exists Tetanus booster 04/06/2032 04/06/2022, 07/21, 06/21/2010, Additional history exists Pneumococcal series for age 65+ Completed 07/08/2015, 11/12/2007, 11/12/2007 Zoster (shingles) series for age 50+ Completed 05/01/2019, 03/04/2019, 02/02/2019, Additional history exists Tdap Completed 04/06/2022, 06/21/2010 COVID-19 vaccine series Completed 02/24/20, 03/14/2022, 09/06/2021, Additional history exists Procedures Procedure Name Priority Date/Time Associated Diagnosis Comments BEDSIDE US STUDY ARCHIVE Routine 08/16/2023 12:06 PM CDT Chronic left shoulder pain Osteoarthritis of left glenohumeral joint from Last 3 Months Results * BEDSIDE US STUDY ARCHIVE (08/16/2023 12:06 PM CDT) Narrative Luna Sloan - 08/16/2023 12:06 PM CDT The patient was seen for ultrasound guided injection by Dr. Oziel Loya. Ultrasound was not used for diagnostic purposes, but to guide the needle placement and document the position of the injection. ?? See patient's EPIC encounter for the detail of the procedure; see SALAZAR for saved images of the injection. Oziel Loya MD PROCEDURE ORD from Last 3 Months Advance Directives * Full Code (Latest Code Status on File) Date Activated Date Inactivated Comments 03/30/2023 11:54 AM 03/30/2023 4:10 PM Question Answer Comments Code Status Discussion: Per Existing Order Care Teams Manager Star Relationship Specialty Start Date End Date Trip Villalobos MD [address] [place] [address] PCP - General Family Practice 05/25/20
--- OUTSIDE RECORDS SUMMARY | 2023-09-13 13:28 | XMS_ITS | Clinical Summary ---
Author Name Unknown Organization [facility] Address [address] [place] [address] Care Team Providers Care Real Estate Executive Assistant Name Role Phone Elsewhere, Pcp Primary Care Provider Unavailabl e Source Comments Patient records contain information from all sites at [facility]. For routine questions regarding patient records, call [phone] during business hours, M-F 8:00 AM - 5:00 PM Central Time. Record requests for emergency care only can be directed to [phone] at any time.[facility] Allergies No known active allergies Medications Medication Sig Dispensed Refills Start Date End Date Status acetaminophen (TYLENOL) 500 mg tablet Take 500-1,000 mg by mouth every 6 (six) hours as needed for pain. 05/29/2020 Active amLODIPine (NORVASC) 5 mg tablet Take 5 mg by mouth at bedtime. 12/14/2016 Active atorvastatin (LIPITOR) 80 mg tablet Take 80 mg by mouth at bedtime. 12/30/2016 Active losartan (COZAAR) 100 mg tablet TAKE ONE TABLET BY MOUTH EVERY DAY FOR BLOOD PRESSURE 07/10/2019 Active loratadine (CLARITIN) 10 mg tablet Take 10 mg by mouth daily as needed for allergies. 02/16/2017 Active nitroglycerin (NITROSTAT) 0.[address] 0.4 mg under the tongue. 12/15/2012 Active iron,carbonyl-reed min C (VITRON-C) 65 mg iron- [address] tablet Take 1 tablet by mouth daily. 02/16/2017 Active calcium citrate-vitamin D3 (CITRACAL+D) 250 mg-5 mcg (200 Unit) per tablet Take 1 tablet by mouth daily with breakfast. 03/01/2008 Active multivitamin-eye (PRESERVISION LUTEIN) 226 mg-200 Unit-5 mg-0.8 mg capsule Take 1 capsule by mouth 2 (two) times a day. Active folic acid/multivit-min/ lutein (CENTRUM SILVER ORAL) Take 1 tablet by mouth daily. 06/04/2020 Active glucosam/chond/msm /boron/hyal (GLUCOSAMINE-CHOND R, MSM-HYAL, ORAL) Take 1 tablet by mouth 2 (two) times a day. 05/27/2020 Active lysine 1,000 mg tablet Take 1,000 mg by mouth daily. 05/26/2020 Active celecoxib (CeleBREX) 200 mg capsule Take 1 capsule (200 mg total) by mouth daily for 14 days. 14 capsule 08/27/2020 Active aspirin 81 mg chewable tablet Chew 1 tablet (81 mg total) 2 (two) times a day. To help prevent blood clots for 6 weeks from surgery, you can then discontinue this medication and return to your baseline aspirin intake (if any) from prior to surgery. 84 tablet 08/27/2020 Active glucosamine sulfate (Glucosamine) 500 mg tablet TAKE BY MOUTH EVERY DAY 04/03/2013 Active gabapentin (NEURONTIN) 300 mg capsule Take 1 capsule (300 mg total) by mouth 3 (three) times a day for 10 days. 30 capsule 12/22/2022 Active Active Problems Problem Noted Date Diagnosed Date Obstructive Sleep Apnea Adult 08/26/2020 Smoking Tobacco Use Personal History 08/26/2020 Hypertension Essential Primary 08/26/2020 Loss Hearing Bilateral 08/26/2020 Prostatectomy Status Post 08/26/2020 Gastrectomy Partial Status Post 08/26/2020 Pain Hip Right 08/26/2020 Atherosclerotic Heart Diseas e Of [place] Coronary Artery Without Angina Pectoris 08/11/2015 Overview: Coronary Artery Disease (CAD) NOS Hypercholesterolemia 08/11/2015 Overview: Hypercholesterolemia Social History Tobacco Use Types Packs/Day Years Used Date Smoking Tobacco: Former Cigarettes 1.5 25 0 05/28/1967 - 05/28/1992 Smokeless Tobacco: Never Alcohol Use Standard Drinks/Week Comments Not Currently 0 (1 standard drink = 0.6 oz pur e alcohol) Nutrition Answer Date Recorded Nutrition: EVOO Fat Source Unknown 07/09 Nutrition: Servings of Fruits/Vegetables per Day Not on file 07/09/2020 Dental Answer Date Recorded Dental: Regular Dentist Unknown 07/09/19 21 Sex and Gender Information Value Date Recorded Sex Assigned at Not on file Gender Identity Not on file Sexual Orientation Not on file Last Filed Vital Signs Vital Sign Reading Time Taken Comments Blood Pressure 164/78 12/22/2022 12:18 PM CDT Pulse 73 12/22/2022 1:45 PM CDT Temperature 36.5 ??C (97.7 ??F) 12/22/2022 12:06 PM C DT Respiratory Rate 18 12/22/2022 1:45 PM CDT Oxygen Saturation 98% 12/22/2022 1:45 PM CDT Inhaled Oxygen Concentration - - Weight 98 kg (216 lb 0.8 oz) 12/22/2022 10:09 AM CDT Height 185 cm (6' 0.84) 08/27/2020 7:30 AM CDT Body Mass Index 28.63 08/27/2020 7:30 AM CDT Plan of Treatment Health Maintenance Due Date Last Done Comments Office Visit for Blood Press ure Check / Re-check 1935 Influenza Vaccine (#1) 2023 , 03/12/2022, 03/10/2021, Additional history exists Depression Screening (Annual PHQ-2) 05/22/2023 Fall Risk Screen (Annual) 05/22/2023 COVID-19 Vaccine (2022-06 4 season) 2023 02/23/2023, 03/14/2022, 09/06/2021, Additional history exists Creatinine Level (Kidney Fun ction Test) 12/23/2023 12/22/2022, 06/29/2022, 08/25/2020, Additional history exists Potassium Level 12/23/2023 12/22/2022, 12/2022, 08/25/2020, Additional history exists Sodium Level 12/23/2023 12/22/2022, 0410/2020, 03/20/2020, Additional history exists DTaP,Tdap,and Td Vaccines (3 - Td or Tdap) 04/06/2032 04/06/2022, 06/21/2010, 08/12/2007, Additional history exists Pneumococcal vaccine (65+ years) Completed 07/08/2015, 11/12/2007, 11/12/2007 Zoster Vaccines Completed 05/01/2019, 02/19, 02/02/2019, Additional history exists Medical Devices Implanted Type Area Sandwich Maker Device Identifier Shelf Expiration Date Model / Serial / Lot Hip Scrw Emp Acet 6.5x45 - [id number] Implanted:Qty : 1 on 08/27/2020 by Bar Ya M.D. at [facility] Hardware e.g. pins/screws /rods Right: Hip [employer] 12/09/2025 940-00-04 5 / / [id number] Hip Scrw Emp Acet 6.5x30 - [id number] Implanted:Qty : 1 on 08/27/2020 by Bar Ya M.D. at [facility] Hardware e.g. pins/screws /rods Right: Hip [employer] 05/25/2026 940-00-03 0 / / [id number] Hip Shll Acet Emp Chl Sz 60i - [id number] Implanted:Qty : 1 on 08/27/2020 by Bar Ya M.D. at [facility] Hip Implant Right: Hip [employer] 03/27/2026 94-02-60 I / / [id number] Lnr Emp Std Sz 40i - [id number] Implanted:Qty : 1 on 08/27/2020 by Bar Ya M.D. at [facility] Hip Implant Right: Hip [employer] 06/26/2025 94--40 I / / [id number] Stem Implanted:Qty : 1 on 08/27/2020 by Bar Ya M.D. at [facility] Hip Implant Right: Hip [employer] [id number] 12/19/2024 J977-15-7 [id number] / / [id number] Hip Head Delta Cer 40mm, Neut - [id number] Implanted:Qty : 1 on 08/27/2020 by Bar Ya M.D. at [facility] Hip Implant Right: Hip [employer] 07/29/2025 400-03-40 [id number] Procedures Procedure Name Priority Date/Time Associated Diagnosis Comments BASIC METABOLIC PANEL, S/P STAT 12/22/2022 10:56 AM CDT from Last 3 Months or Most Recently Relevant to Health Maintenance Results * Basic Metabolic Panel (12/22/2022 10:56 AM CDT) Potassium, P 4.2 3.6 - 5.2 mmol/L 12/22/2022 11:30 AM CDT [facility] Sodium, P 137 135 - 145 mmol/L 12/22/2022 11:30 AM CDT [facility] Chloride, P 102 98 - 107 mmol/L 12/22/2022 11:30 AM CDT [facility] Bicarbonate, P 25 22 - 29 mmol/L 12/22/2022 11:30 AM CDT [facility] Anion Gap, P 10 7 - 15 12/22/2022 11:30 AM CDT [facility] BUN (Blood Urea Nitrogen), P 22 8 - 24 mg/dL 12/22/2022 11:30 AM CDT [facility] Creatinine 0.82 0.74 - 1.35 mg/dL 12/22/2022 11:30 AM CDT [facility] Estimated GFR (eGFR) 86 >=60 mL/min/BSA 12/22/2022 11:30 AM CDT [facility] Comment: Estimated GFR calculated using the 2020 CKD_EPI creatinine equation. Calcium, Total, P 9.2 8.8 - 10.2 mg/dL 12/22/2022 11:30 AM CDT [facility] Glucose, P 128 70 - 140 mg/dL 12/22/2022 11:30 AM CDT [facility] Blood (Blood, Venous) 12/22/2022 10:56 AM CDT 12/22/2022 11:05 AM CDT Hernesto Lucio M.D. LAB BLOOD ADD-ON [facility] [address] [place] [address], [facility] ST[facility] [address] [place] [address] from Last 3 Months or Most Recently Relevant to Health Maintenance Advance Directives For more information, please contact: [phone] * Full Code (Latest Code Status on File) Date Activated Date Inactivated Comments 08/27/2020 12:19 PM 08/28/2020 2:56 PM Question Answer Comments Full Code: Discussed Care Teams Real Estate Executive Assistant Relationship Specialty Start Date End Date Elsewhere, Pcp PCP - General Internal Medicine 12/22/22
--- OUTSIDE RECORDS SUMMARY | 2023-09-13 13:29 | XMS_ITS | Encounter Summary ---
Author Name Unknown Organization [facility] Address [address] [place] [address]. [place] [address] Care Team Providers Care Forestry Consultant Name Role Phone Doctor, Shannan CASTANEDA Primary Care Provider UnavailTrip Cornejo MD Primary Care Provider [phone] Williams Muñoz MD Unavailable RamirezCarlo PA-C Unavailable [phone] Williams Muñoz MD Unavailable Williams Muñoz MD Unavailable RamirezCarlo PA-C Unavailable [phone] Encounter Details Date Type Department Care Team (Late st Contact Info) Description 11/07/2007 Office Visit-[facility] [address] [place] [address] Darryl Estrada MD Social History Tobacco Use Types Packs/Day Years Used Date Smoking Tobacco: Never Assessed Sex and Gender Information Value Date Recorded Sex Assigned at Male 05/10/2023 1:59 PM ETL INFORMATICA ARCHITECT Gender Identity Male 05/10/2023 1:59 PM ETL INFORMATICA ARCHITECT Sexual Orientation Not on file documented as of this encounter Progress Notes * Darryl Estrada MD - 11/09/2007 1:53 PM CDT Progress Note Created by: Darryl Estrada M.D. DATE: 11/07/2007 SHEILA JADE DATE OF : 1935 AGE: [age] years old Referring Physician: DORYS CARVER Referring Clinic: [facility] CURRENT DIAGNOSES 1. - CAD, 414.00 2. - Hypertension, benign, 401.1 3. Status post-PTCA, V45.82 4. - Hyperlipidemia, 272.4 ALLERGIES altace, Dry,hacky cough MEDICATIONS (prior to changes made today) 1. Lysine 500 mg, 1 p.o. q.d. 2. garlic 1000 mg, 1250mg qd 3. Nexium 40 mg., 1 p.o. q.d. 4. Citracal Liquitab 500 mg, 1 p.o. q.d. 5. Crestor 20 Mg, 1 p.o. q.d. 6. Zetia 10 Mg, 1 p.o. q.d. 7. Diovan Hct 12.5 Mg-160 Mg, 1 p.o. q.d. 8. Aspirin 81 mg, 1 p.o. q.d. 9. Nitrostat 0.4 mg, Take as Directed CHIEF COMPLAINTS Followup of - Hyperlipidemia HISTORY OF PRESENT ILLNESS I again had the pleasure of seeing your patient, Sheila Jade, at [facility] for evaluation of coronary artery disease. This patient is status post circumflex artery myocardial infarctionwith posterolateral TN, and angioplasty of the circumflex artery in 1992. He had moderate disease in his LAD at that time. His last stress echocardiogram completed in 2005 was normal. More recently he developed a stomach problem where he began having pain and was started on Nexium. Additionally, hewas having evidence of hypotension, dizziness, nausea, and vomiting. He was hospitalized at [facility] overnight and was found to have hyponatremia and hypokalemia. He has recovered from this. He has not had any further orthostatic lightheadedness. He denies chest pain or peripheral edema. The patient does have a history of a gastrectomy and vagotomy for peptic ulcer disease. His ALT has been slightly elevated with his fasting lipid profiles. He denies syncope, PND, or orthopnea. His most recent lipid profile from [facility] dated 11/05/07 showed triglycerides of 80, total cholesterol 170, HDL 72, LDL 82, with an ALT of 60. The patient was having some contractures within his right hand and was sent to a surgeon for evaluation and did go on and have some release of these contractures last January. This suggested Dupuytren's contractures. On physical exam, current blood pressure is 118/70, current pulse is 80 and regular. Chest is clear. Cardiac exam: Regular rate and rhythm. Normal S1 and S2 with an S4 gallop, but no S3 or murmur. NoJVD. Abdomen and extremities are benign. PAST HISTORY Past Medical Illnesses: hypercholesterolemia, peptic ulcer disease, carcinoma of the prostate Past Cardiac Illnesses: S/P myocardial infarction-posterolateral May 1992 Infectious History: no previous history of significant infectious diseases. Trauma History: no previous history of significant trauma. Surgeries/Procedures - General: appendectomy over 20 years ago, vagotomy and partial gastrectomy for PUD,1974, radical prostatectomy 03/10/04 for cancer, right hand surgery,01/2007 Cardiology Procedures-Invasive: cardiac cath (left) mid CFX May 1992, PTCA of the mid CFX May 1992 Cardiology Procedures-Noninvasive: stress echocardiogram April 2002, normal, stress echo Jan 2006 FAMILY HISTORY: Father - Age 66, 56 with TN and from aortic aneurys and CAD; CARDIAC RISK FACTORS Tobacco Abuse: negative, used to smoke, but quit, 1992; Family History of Heart Disease: male55 y/o, positive; Hyperlipidemia: positive, LDL goal<LT>70; Hypertension: controlled by medication, positive; Diabetes Mellitus: negative; Prior History of Heart Disease: positive; Obesity:BMI<LT>25 (Normal), negative; Sedentary Life Style:positive; Age:positive ; LDL Goal <LT> 100 SOCIAL HISTORY Alcohol Use - drinks regularly and 2-4 oz/day; Smoking - used to smoke but quit and quit 05-28-92; Diet - regular diet; Lifestyle - , children and 8; Exercise - some exercise and walking; Seat Belt Use - always; Occupation - retired; Residence - lives with ; Place of - [place];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 INTEGUMENTARY denies any change in hair or nails, rashes, or skin lesions. EYES wears eye glasses/contact lenses EARS, NOSE, THROAT, MOUTH partial hearing loss RESPIRATORY denies dyspnea, cough, wheezing or hemoptysis. CARDIOVASCULAR dizziness, [facility] Inpt. with dehydration in September 2007 ABDOMINAL denies change in bowel habits, dyspepsia, ulcer disease, hematochezia or melena. GENITOURINARY-MALE recent history of prostate cancer and radical prostatectomy last week MUSCULOSKELETAL denies any history of venous insufficiency, arthritic symptoms or back problems. NEUROLOGICAL denies any history of recurrent strokes, TIA, or seizure disorder. PSYCHIATRIC denies any history of depression, substance abuse or change in cognitive functions. ENDOCRINE hyperlipidemia HEMATOLOGICAL/IMMUNOLOGIC seasonal allergies PHYSICAL EXAMINATION VITAL SIGNS: Blood Pressure: 118/70 Sitting, Right arm, large cuff Pulse- 80.00/min. Weight- 201.90 lbs. Height- 75.00 Temperature- .00 CONSTITUTIONAL cooperative, alert and oriented,well developed, well nourished, in no acute distress. SKIN warm and dry to touch, no apparent skin lesions, or masses noted. HEAD normocephalic, atraumatic EYES Pupils equal and round, conjunctivae and lids unremarkable, sclera white, no xanthalasma ENT no pallor or cyanosis, dentition good NECK carotid pulses are full and equal bilaterally, JVP normal, no carotid bruit, no thyromegaly CHEST normal symmetry, no tenderness to palpation, normal respiratory excursion, no intercostal retraction, no use of accessory muscles, clear to auscultation and percussion. CARDIAC regular rhythm, S1 normal, S2 normal, S4 present, no murmurs, apical impulse 5th ICS, left MCL, no lifts or thrills palpable ABDOMEN abdomen soft, bowel sounds normoactive, no masses, no hepatosplenomegaly, non- tender, no bruits PERIPHERAL PULSES pulses full and equal in all extremities, no bruits auscultated. GENITALIA MALE indwelling lerma catheter EXTREMITIES & BACK no deformities, clubbing, cyanosis, erythema or edema observed. There are no spinal abnormalities noted. Normal muscle strength and tone. NEUROLOGICAL no gross motor deficits noted, affect appropriate, oriented to time, person and place. MEDICATIONS UPDATED/STARTED TODAY: Nexium 40 mg., 1 p.o. q.d., 0 ASSESSMENT: 1. Sheila Jade is a delightful 72-year-old male with known coronary artery disease who is stable at this time. He has not had recurrent angina. He is exercising by walking with his each day. Itis my intention to repeat his stress echocardiogram in October,. He will call if he experiences any further chest discomfort. We will specifically be looking for LAD and circumflex artery ischemia.2. Hyperlipidemia, with high Lp(a). We are trying to maintain an LDL cholesterol below 70. He remains on Crestor with his LDL very close to that 70 dorys. He will continue to follow diet and exercise. Thank you very much for allowing me to help care for this delightful patient. I did spend 30 minutes with the patient and his today, over 50% of that time counseling on diet, exercise, and weight loss. Should you have any questions regarding his care, please feel free to contact me at any timein the future. TODAYS ORDERS 1. Return Visit 1 year 2. Treadmill Stress Echo 1 year Darryl Estrada M.D. documented in this encounter Plan of Treatment Not on file documented as of this encounter Visit Diagnoses Not on filedocumented in this encounter Care Teams Forestry Consultant Relationship Specialty Start Date End Date Shannan Alvarez MD PCP - General 07/06/01 04/14/14 Trip Villalobos MD PCP - General Family Practice 04/15/14 Williams Muñoz MD [address] [place] [id number] Assigned Heart and Vascular Provider 04/05/20 12/12/20 Carlo Ramirez PA-C [address] [address] Assigned Heart and Vascular Provider 12/13/20 06/17/22 Williams Muñoz MD [address] [place] [address] Cardiovascular Disease 02/21/22 Williams Muñoz MD [address] [place] [id number] Assigned Heart and Vascular Provider 06/18/22 07/22/22 Carlo Ramirez PA-C [address] [place] [id number] Assigned Heart and Vascular Provider 07/23/22 documented as of this encounter
--- OUTSIDE RECORDS SUMMARY | 2023-09-13 13:29 | XMS_ITS | Encounter Summary ---
Author Name Unknown Organization [facility] Address [address] [place] [address]. [place] [address] Care Team Providers Care Slope Hoist Operator Name Role Phone Trip Villalobos MD Primary Care Provider [phone] Williams Muñoz MD Unavailable Carlo Ramirez PA-C Unavailable [phone] Reason for Visit * Reason Comments Follow Up Hypertension HTN Bp Re-Check Encounter Details Date Type Department Care Team (Latest Contact Info) Description 06/01/[address] [facility] [address] [place] [address] Vinicio Antonio Follow Up; Hypertension (HTN Bp Re-Check) Social History Tobacco Use Types Packs/Day Years Used Date Smoking Tobacco: Former Smokeless Tobacco: Never Comments:Quit 1992 Alcohol Use Standard Drinks/Week Comments No 0 (1 standard drink = 0.6 oz pur e alcohol) none since 2008 PHQ-2 Answer Date Recorded PHQ-2 Score 0 07/20/2022 Adolescent Education Answer Date Record ed Getting School Help Needed Not on file 02/18 Sex and Gender Information Value Date Recorded Sex Assigned at Male 05/10/2023 1:59 PM MAIL CENSOR Gender Identity Male 05/10/2023 1:59 PM MAIL CENSOR Sexual Orientation Not on file documented as of this encounter Plan of Treatment Not on file documented as of this encounter Visit Diagnoses Not on filedocumented in this encounter Care Teams Slope Hoist Operator Relationship Specialty Start Date End Date Trip Villalobos MD PCP - General Family Practice 04/15/14 Williams Muñoz MD [address] [facility] [address] [place] [address] Cardiovascular Disease 02/21/22 Carlo Ramirez, PADamonC [address] [facility] [place] [address] Assigned Heart and Vascular Provider 07/23/22 documented as of this encounter
--- OUTSIDE RECORDS SUMMARY | 2023-09-13 13:29 | XMS_ITS | Clinical Summary ---
Author Name Unknown Organization [facility] Address [address] [place] [address] Care Team Providers Care Paving And Surfacing Labourer Name Role Phone Trip Villalobos MD Primary Care Provider [phone] Williams Muñoz MD Unavailable Carlo Ramirez PA-C Unavailable [phone] Allergies Active Allergy Reactions Criticality Noted Date Comments Lisinopril 07/27/2018 Dry cough Other Environmental Allergy Unknown 03/10/20 16 Seasonal Allergies 03/10/2016 Medications Medication Sig Dispensed Refills Start Date End Date Status aspirin (ASA) 81 MG EC tablet Take 81 mg by mouth daily Active L-Lysine 500 MG TABS Take 1,000 mg by mouth daily Active Multiple Vitamins-Minerals (CENTRUM SILVER) per tablet Take 1 tablet by mouth daily Active Iron-Vitamin C (VITRON-C PO) Take 65 mg % by mouth 2 times daily Active Glucosamine-Chondroi t-Vit C-Mn (GLUCOSAMINE 1500 COMPLEX PO) Take 1,500 mg by mouth Active ascorbic acid (VITAMIN C) 1000 MG TABS Take 1,000 mg by mouth daily Active Misc Natural Products (LUTEIN VISION BLEND PO) Focus select tablet 2 daily Active amLODIPine (NORVASC) 5 MG tablet Take 5 mg by mouth daily Active Calcium Citrate-Vitamin D (CITRACAL + D PO) Take by mouth daily Active atorvastatin (LIPITOR) 80 MG tabletIndications:Mi xed hyperlipidemia Take 1 tablet (80 mg) by mouth At Bedtime 90 tablet 2 05/20/2019 Active nitroGLYcerin (NITROSTAT) 0.4 MG sublingual tabletIndications:Co ronary atherosclerosis of [place] coronary artery Place 1 tablet (0.4 mg) under the tongue every 5 minutes as needed for chest pain May repeat X 2. If no relief after 3 tablets call 911 25 tablet 07/05/2019 Active Additional Information Patient not taking.Reported on 07/20/2022 losartan 100 MG PO tabletIndications:Be nign essential hypertension,Coronar y artery disease involving [place] coronary artery of [place] heart without angina pectoris Take 1 tablet (100 mg) by mouth daily 30 tablet 3 07/10/2019 Active Psyllium (METAMUCIL PO) Active Loratadine (KLS ALLERCLEAR PO) Active diphenhydrAMINE HCl (BENADRYL ALLERGY PO) Take by mouth as needed Active amoxicillin-clavulan ate (AUGMENTIN) 875-125 MG tablet 05/09/2022 Active ezetimibe (ZETIA) 10 MG tabletIndications:At herosclerosis of [place] coronary artery of [place] heart without angina pectoris Take 1 tablet (10 mg) by mouth daily 90 tablet 3 07/20/2022 Active ACETAMINOPHEN PO Take 500 mg by mouth every 4 hours as needed for pain Active Menaquinone-7 (VITAMIN K2 PO) Active isosorbide mononitrate (IMDUR) 30 MG 24 hr tabletIndications:At herosclerosis of [place] coronary artery of [place] heart without angina pectoris,OSEGUERA (dyspnea on exertion) Take 1 tablet (30 mg) by mouth daily 90 tablet 4 06/29/2023 Active carvedilol (COREG) 6.25 MG tabletIndications:Be nign essential hypertension Take 1 tablet (6.25 mg) by mouth 2 times daily (with meals) 180 tablet 2 09/07/2023 Active carvedilol (COREG) 6.25 MG tabletIndications:Be nign essential hypertension Take 1 tablet (6.25 mg) by mouth 2 times daily (with meals) 60 tablet 3 05/11/2023 09/07/19 24 Discontinu ed(Reorder (No AVS)) Active Problems Problem Noted Date Diagnosed Date Aortic valve sclerosis 03/23/2020 Non-ST elevation (NSTEMI) myocardial infarction 03/10/2016 Benign essential hypertension 03/10/2016 Hyperlipidemia LDL goal <70 04/15/2014 Hyperlipidemia Overview: Diagnosis updated by automated process. Provider to review and confirm. Anemia Myocardial infarction Hypertension CAD (coronary artery disease) Overview: status post circumflex artery myocardial infarction with a posterolateral myocardial infarction in 1992. This vessel underwent angioplasty but not stenting. He had moderate disease in the left anterior descending artery at that time. Encounters Date Type Department Care Team Description 09/07/2023 Refill [facility] [address] [place] [address] Carlo Ramirez PA-C Refill Request (Coreg) 06/29/2023 Refill [facility] [address] [place] [address] Carlo Ramirez PA-C Refill Request (Isosorbide) from Last 3 Months Family History Medical History Relation Comments Myocardial Infarction Father aneurysm o f aorta Relation Status Comments Father Social History Tobacco Use Types Packs/Day Years Used Date Smoking Tobacco: Former Smokeless Tobacco: Never Tobacco Cessation:Counseling Given: Not Answered Comments:Quit 1992 Alcohol Use Standard Drinks/Week Comments No 0 (1 standard drink = 0.6 oz pur e alcohol) none since 2008 PHQ-2 Answer Date Recorded PHQ-2 Score 0 07/20/2022 Adolescent Education Answer Date Record ed Getting School Help Needed Not on file 02/18 Sex and Gender Information Value Date Recorded Sex Assigned at Male 05/10/2023 1:59 PM CIGAR PACKER Gender Identity Male 05/10/2023 1:59 PM CIGAR PACKER Sexual Orientation Not on file Last Filed Vital Signs Vital Sign Reading Time Taken Comments Blood Pressure 151/76 06/01/2023 1:50 PM CIGAR PACKER Pulse 85 06/01/2023 1:50 PM CIGAR PACKER Temperature - - Respiratory Rate - - Oxygen Saturation 98% 06/01/2023 1:50 PM CIGAR PACKER Inhaled Oxygen Concentration - - Weight 99.8 kg (220 lb) 05/11/2023 10:29 AM CIGAR PACKER Height 189.2 cm (6' 2.5) 05/11/2023 10:29 AM CS T Body Mass Index 27.87 05/11/2023 10:29 AM CIGAR PACKER Plan of Treatment Health Maintenance Due Date Last Done Comments ADVANCE CARE PLANNING 1935 ANNUAL REVIEW OF HM ORDERS 1935 RSV VACCINE ( & 60+) (1 - 1-dose 60+ series) 1997 FALL RISK ASSESSMENT 2002 MEDICARE ANNUAL WELLNESS VISIT 2002 LIPID 01/25/2019 01/25/2018, 11/, 10/07/2014, Additional history exists PHQ-2 (once per calendar year) 2023 07/20/2022 COVID-19 Vaccine ( season) 2023 02/23/2023, 03/14/2022, 09/06/2021, Additional history exists DTAP/TDAP/TD IMMUNIZATION (8 - Td or Tdap) 04/06/2032 04/06/2022, 08/13/2020, 06/21/2010, Additional history exists Pneumococcal Vaccine: 65+ Years Completed 07/08/2015, 11/12/2007, 11/12/2007 ZOSTER IMMUNIZATION Completed 05/01/2019, 03/04/2019, 02/02/2019, Additional history exists INFLUENZA VACCINE Completed 03/03/2023, , 03/12/2022, Additional history exists HPV IMMUNIZATION Aged Out No longer e ligible based on patient's age to complete this topic IPV IMMUNIZATION Aged Out No longer e ligible based on patient's age to complete this topic MENINGITIS IMMUNIZATION Aged Out No l onger eligible based on patient's age to complete this topic RSV MONOCLONAL ANTIBODY Aged Out No l onger eligible based on patient's age to complete this topic Procedures Procedure Name Priority Date/Time Associated Diagnosis Comments LIPID PROFILE Routine 01/25/2018 from Last 3 Months or Most Recently Relevant to Health Maintenance Results * Lipid Profile (01/25/2018) Cholesterol mg/dL [facility] Triglycerides mg/dL [facility] HDL Cholesterol 66 40 mg/dL [facility] LDL Cholesterol Calculated 91 100 mg/dL [facility] Non HDL Cholesterol mg/dl [facility] Blood specimen (specimen) 01/25/2018 Patient Reported LAB - BLOOD ORDERABL ES [facility] [address] [place] [address], [facility] [phone] from Last 3 Months or Most Recently Relevant to Health Maintenance Care Teams Paving And Surfacing Labourer Relationship Specialty Start Date End Date Trip Villalobos MD PCP - General Family Practice 04/15/14 Williams Muñoz MD [address] [facility] [address] [place] [id number] Cardiovascular Disease 02/21/22 Carlo Ramirez, PADamonC [address] [place], [place] [phone] Assigned Heart and Vascular Provider 07/23/22
--- OUTSIDE RECORDS SUMMARY | 2023-09-13 13:29 | XMS_ITS | Encounter Summary ---
Author Name Unknown Organization [facility] Address [address] [place] [address]. [place] [address] Care Team Providers Care Nursery Technician Name Role Phone Trip Villalobos MD Primary Care Provider [phone] Williams Muñoz MD Unavailable Carlo Ramirez PA-C Unavailable [phone] Reason for Visit * Reason Onset Date Comments Refill Request 06/29/2023 Isosorbide Encounter Details Date Type Department Care Team (Late st Contact Info) Description 06/29/2023 [facility] [address] [place] [address] [address] [place] [address] Carlo Ramirez PA-C [address] [place] [address] Refill Request (Isosorbide) Social History Tobacco Use Types Packs/Day Years [...] Sex Assigned at Male 05/10/2023 1:59 PM GUARDIAN AD LITEM Gender Identity Male 05/10/2023 1:59 PM GUARDIAN AD LITEM Sexual Orientation Not on file documented as of this encounter Miscellaneous Notes * Telephone Encounter - Barby Pantoja, RN - 06/29/2023 11:08 AM CST [facility] Cardiology Refill Guideline reviewed. Medication meets criteria for refill. DIAN AD LITEM documented in this encounter Plan of Treatment Not on file documented as of this encounter Visit Diagnoses Diagnosis Atherosclerosis of [place] coronary artery of [place] heart without angina pectoris OSEGUERA (dyspnea on exertion) Other dyspnea and respiratory abnormality documented in this encounter Care Teams Nursery Technician Relationship Specialty Start Date End Date Trip Villalobos MD PCP - General Family Practice 04/15/14 Williams Muñoz MD [address] [place] [id number] Cardiovascular Disease 02/21/22 Carlo Ramirez PA-C [address] [id number] Assigned Heart and Vascular Provider 07/23/22 documented as of this encounter
--- OUTSIDE RECORDS SUMMARY | 2023-09-13 13:29 | XMS_ITS | Encounter Summary ---
Author Name Unknown Organization [facility] Address [address] [place] [address] Care Team Providers Care Gas Producer Name Role Phone DoctorShannan MD Primary Care Provider UnavailTrip Cornejo MD Primary Care Provider [phone] Williams Muñoz MD Unavailable Ramirez, Carlo Alfonso PA-C Unavailable [phone] Williams Muñoz MD Unavailable Williams Muñoz MD Unavailable Ramirez, Carlo Alfonso PA-C Unavailable [phone] Encounter Details Date Type Department Care Team (Late st Contact Info) Description 11/07/2006 Office Visit-[facility] [address] [place] [address] Unknown, MD Antonio Social History Tobacco Use Types Packs/Day Years Used Date Smoking Tobacco: Never Assessed Sex and Gender Information Value Date Recorded Sex Assigned at Male 05/10/2023 1:59 PM ENTERPRISE ARCHITECT Gender Identity Male 05/10/2023 1:59 PM ENTERPRISE ARCHITECT Sexual Orientation Not on file documented as of this encounter Progress Notes * Unknown, MD Antonio - 11/08/2006 3:33 PM CDT Progress Note Created by: Cherelle Mcclain PA-C DATE: 11/07/2006 [id number] SHEILA JADE DATE OF : 1935 AGE: [age] years old Referring Physician: AVA CARVER Referring Clinic: [facility] CURRENT DIAGNOSES 1. Personal History Of Alcoholism, V11.3 2. - CAD, 414.00 3. 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 - Hypertension, benign, 401.1 5. Status post-PTCA, V45.82 6. - Hyperlipidemia, 272.4 ALLERGIES altace, Dry,hacky cough MEDICATIONS (prior to changes made today) 1. Lysine 500 mg, 1 p.o. q.d. 2. garlic 1000 mg, 1250mg qd 3. Citracal Liquitab 500 mg, 1 p.o. q.d. 4. Crestor 20 Mg, 1 p.o. q.d. 5. Zetia 10 Mg, 1 p.o. q.d. 6. Diovan Hct 12.5 Mg-160 Mg, 1 p.o. q.d. 7. Aspirin 81 mg, 1 p.o. q.d. CHIEF COMPLAINTS annual fu, hyperlipidemia HISTORY OF PRESENT ILLNESS Mr. Jade is a delightful 71-year-old gentleman who presents to [facility] today for his annual follow up visit. As you recall, he is followed in our office by Dr. Estrada with a past medical history of known coronary artery disease, who had a circumflex myocardial infarction with posterolateral IL, with angioplasty to the circumflex artery back in 1992. He had moderate disease of th e LAD at that time. He had a stress echocardiogram completed last year which was a normal stress echo. Over the last year he has done reasonably well. He denies any exertional chest, arm, neck, shoulder, or jaw discomfort, lightheadedness, dizziness, syncope, near-syncope, dyspnea, orthopnea, or PND. He does have some problems with alcoholism, drinking two to four ounces of alcohol per day. His AL T was slightly elevated when he had it last drawn at his PMD's earlier this week. He also has a history of gastrectomy and vagotomy for peptic ulcer disease. He does have a history of hyperlipidemia and his most recent lipid profile results reveal triglycerides 59, total cholesterol 185, HDL 96, LDL 77, and an ALT of 68. He is currently on Crestor 20 mg q.d. and Zetia 10 mg q.d. He denies any myalgias or muscle weakness. His one concern today is with his hand. He is having some bending of his fingers and has fibrous bands noted on the palmar surface of his hands that he is concerned about and is not sure what he should do with them. It appears it ispotentially Dupuytren's contractures and I have asked him to see his primary care physician or an orthopedic surgeon regarding this issue. He otherwise seems to be feeling well with no other major complaints. All other review of systems, past medical history, and physical exam findings are noted below. PAST HISTORY Past Medical Illnesses: hypercholesterolemia, peptic ulcer disease, carcinoma of the prostate Past Cardiac Illnesses: S/P myocardial infarction-posterolateral May 1992 Infectious Diseases: no previous history of significant infectious diseases. Surgical Procedures: appendectomy over 20 years ago, vagotomy and partial gastrectomy for PUD,1974, radical prostatectomy 03/10/04 for cancer Trauma History: no previous history of significant trauma. Cardiology Procedures-Invasive: cardiac cath (left) mid CFX May 1992, PTCA of the mid CFX May 1992 Cardiology Procedures-Noninvasive: stress echocardiogram April 2002, normal FAMILY HISTORY: Father - Age 66, 56 with [place] and from aortic aneurys and CAD; CARDIAC RISK FACTORS Tobacco Abuse: negative, used to smoke, but quit, 1992; Family History of Heart Disease: male55 y/o, positive; Hyperlipidemia: positive, LDL goal<LT>70; Hypertension: controlled by medication, positive; Diabetes Mellitus: negative; Prior History of Heart Disease: positive; Obesity:BMI<LT>25 (Normal), negative; Sedentary Life Style:positive; Age:positive SOCIAL HISTORY Alcohol Use - drinks regularly and 2-4 oz/day; Smoking - used to smoke but quit and quit 05-28-92; Diet - regular diet; Lifestyle - , children and 8; Exercise - some exercise and walking; Seat Belt Use - always; Occupation - retired; Residence - lives with ; Place of - [place];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 Weight- 203.00 lbs. Height- 75.00 Temperature- .00 CONSTITUTIONAL cooperative, [...] time, person and place. MEDICATIONS UPDATED/STARTED TODAY: Crestor 20 Mg, 1 p.o. q.d., #90 Zetia 10 Mg, 1 p.o. q.d., #90 Diovan Hct 12.5 Mg-160 Mg, 1 p.o. q.d., #90 MEDICATIONS REFILLED/STOPPED TODAY: Crestor 20 mg 1 p.o. q.d. #90 Refill, Diovan Hct 12.5 Mg-160 Mg 1 p.o. q.d. #90 Refill and Zetia 10Mg 1 p.o. q.d. #90 Refill TODAYS ORDERS 1. Return Visit w/ Dr. Villareal 1 year 2. Lipid profile/ALT 1 year ISAAC Steven documented in this encounter Plan of Treatment Not on file documented as of this encounter Visit Diagnoses Not on filedocumented in this encounter Care Teams Gas Producer Relationship Specialty Start Date End Date Shannan Alvarez MD PCP - General 07/06/01 04/14/14 Trip Villalobos MD PCP - General Family Practice 04/15/14 Williams Muñoz MD [address] [facility] [address] [place] [id number] Assigned Heart and Vascular Provider 04/05/20 12/12/20 Carlo Ramirez PA-C [address] [facility] [place] [address] Assigned Heart and Vascular Provider 12/13/20 06/17/22 Williams Muñoz MD [address] [facility] [address] [place], [place] [address] Cardiovascular Disease 02/21/22 Williams Muñoz MD [address] [place] [id number] Assigned Heart and Vascular Provider 06/18/22 07/22/22 aCrlo Ramirez PA-C [address] [facility] [place] [id number] Assigned Heart and Vascular Provider 07/23/22 documented as of this encounter
--- OUTSIDE RECORDS SUMMARY | 2023-09-13 13:29 | XMS_ITS | Encounter Summary ---
Author Name Unknown Organization [facility] Address [address] [place] [address]. [place] [address] Care Team Providers Care Athletics Teacher Name Role Phone Trip Villalobos MD Primary Care Provider Williams Muñoz MD Unavailable Carlo Ramirez PA-C Unavailable [phone] Encounter Details Date Type Department Care Team (Late st Contact Info) Description 06/02/2023 [facility] Medical Advice [facility] [address] [place] [address] [place] [address] Williams Muñoz MD [address] [facility] [address] [place], [place] [address] Social History Tobacco Use Types Packs/Day Years [...] Sex Assigned at Male 05/10/2023 1:59 PM WEBLOGIC ADMINISTRATOR Gender Identity Male 05/10/2023 1:59 PM WEBLOGIC ADMINISTRATOR Sexual Orientation Not on file documented as of this encounter Miscellaneous Notes * Telephone Encounter - Carlo Ramirez PA-C - 06/07/2023 1:18 PM CST SBP 130s just 30 minutes after meds at home. Ok to continue current meds. Carlo Ramirez PA-C 06/07/2023 1:18 PM OGIC ADMINISTRATOR * Telephone Encounter - Melba Izaguirre RN - 06/05/2023 8:03 AM CST [employer] messages sent from patient: My failure to take Normal morning meds affected BP. ( Early appointment different Clinic ) This morning was 138/73/72. I will have Carvedilol refilled and advise is unable keep BP below 140 tavares. Gildardo Hinkle BP check done in clinic on 06/01/23: [facility] BLOOD PRESSURE CHECK Last office visit: 05/11/23 Previous blood pressure: 149/87 mm Hg Previous heart rate: 75 bpm Time of visit: 2:15pm Morning medications were taken at: 7am Today's blood pressure: 151/76 mm Hg Today's heart rate: 85 bpm Home monitor blood pressure: 160/82 mmHg Home monitor heart rate: 68 bpm Additional Comments: N/A Results routed to: Ana Bernard Ordering Provider: Carlo Ramirez In clinic Provider: Will route to Carlo Ramirez for review. OGIC ADMINISTRATOR * Telephone Encounter - Meme Gomez RN - 06/02/2023 10:08 AM CST Message forwarded to JAIMIE Team. Last JAIMIE OV 05-11-23. Last Dr. Muñoz OV 03-31-22- OGIC ADMINISTRATOR documented in this encounter Plan of Treatment Not on file documented as of this encounter Visit Diagnoses Not on filedocumented in this encounter Care Teams Athletics Teacher Relationship Specialty Start Date End Date Trip Villalobos MD PCP - General Family Practice 04/15/14 Williams Muñoz MD [address] [facility] [address] [place] [id number] Cardiovascular Disease 02/21/22 Carlo Ramirez PA-C [address] [facility] [place] [id number] Assigned Heart and Vascular Provider 07/23/22 documented as of this encounter
--- OUTSIDE RECORDS SUMMARY | 2023-09-13 13:29 | XMS_ITS | Referral Summary ---
Author Name Unknown Organization [facility] Address [address] [place] [address] Care Team Providers Care Battery Assembler Plastic Name Role Phone Elsewhere, Pcp Primary Care Provider Unavailabl e Source Comments Patient records contain information from all sites at [facility]. For routine questions regarding patient records, call [phone] during business hours, M-F 8:00 AM - 5:00 PM Central Time. Record requests for emergency care only can be directed to [phone] at any time.[facility] Allergies No known active allergies Medications Medication [...] Right 08/26/2020 Atherosclerotic Heart Diseas e Of [place] Coronary Artery Without Angina Pectoris 08/11/2015 Overview: [...] 08/27/2020 7:30 AM CDT Plan of Treatment Not on file Medical Devices Implanted Type Area Printing Grey Cloth Tender Device Identifier Shelf Expiration Date Model / Serial / Lot Hip Scrw Emp Acet 6.5x45 - [id number] Implanted:Qty : 1 on 08/27/2020 by Bar Ya M.D. at [facility] Hardware e.g. pins/screws /rods Right: Hip [employer] 12/09/2025 940-00-04 5 / / [id number] Hip Scrw Emp Acet 6.5x30 - [id number] Implanted:Qty : 1 on 08/27/2020 by Bar Ya M.D. at [facility] Hardware e.g. pins/screws /rods Right: Hip [employer] 05/25/2026 940-00-03 0 / / [id number] Hip Shll Acet Emp Chl Sz 60i - [id number] Implanted:Qty : 1 on 08/27/2020 by Bar Ya M.D. at [facility] Hip Implant Right: Hip [employer] 03/27/2026 940-02-60 I / / [id number] Lnr Emp Std Sz 40i - [id number] Implanted:Qty : 1 on 08/27/2020 by Bar Ya M.D. at [facility] Hip Implant Right: Hip [employer] 06/26/2025 941-01-40 I / / [id number] Stem Implanted:Qty : 1 on 08/27/2020 by Bar Ya M.D. at [facility] Hip Implant Right: Hip [employer] [id number] 12/19/2024 P433-83-7 504 / / [id number] Hip Head Delta Cer 40mm, Neut - [id number] Implanted:Qty : 1 on 08/27/2020 by Bar Ya M.D. at [facility] Hip Implant Right: Hip [employer] 07/29/2025 400-03-40 2 / / [id number] Procedures Procedure Name Priority Date/Time Associated Diagnosis [...] CDT Hernesto Lucio M.D. LAB BLOOD ADD-ON [facility] [address] [place] [address], [place] [facility] [address] [place] [address] from Last 3 Months or Most Recently Relevant to Health Maintenance Advance Directives For more information, please contact: [phone] * Full Code (Latest Code Status on File) Date Activated Date Inactivated Comments 08/27/2020 12:19 PM 08/28/2020 2:56 PM Question Answer Comments Full Code: Discussed Care Teams Battery Assembler Plastic Relationship Specialty Start Date End Date Elsewhere, Pcp PCP - General Internal Medicine 12/22/22
--- OUTSIDE RECORDS SUMMARY | 2023-09-13 13:29 | XMS_ITS | Encounter Summary ---
Author Name Unknown Organization [facility] Address [address] [place] [address]. [place] [address] Care Team Providers Care Surgical Scheduler Name Role Phone Doctor, Shannan CASTANEDA Primary Care Provider UnavailTrip Cornejo MD Primary Care Provider [phone] Williams Muñzo MD Unavailable RamirezCarlo PA-C Unavailable [phone] Williams Muñoz MD Unavailable Williams Muñoz MD Unavailable Ramirez, Carlo Alfonso PA-C Unavailable [phone] Encounter Details Date Type Department Care Team (Late st Contact Info) Description 02/17/2010 Office Visit-[facility] [address] [place] [address] Darryl Estrada MD Social History Tobacco Use Types Packs/Day Years Used Date Smoking Tobacco: Never Assessed Sex and Gender Information Value Date Recorded Sex Assigned at Male 05/10/2023 1:59 PM FIRE PATROL Gender Identity Male 05/10/2023 1:59 PM FIRE PATROL Sexual Orientation Not on file documented as of this encounter Progress Notes * Darryl Estrada MD - 02/18/2010 4:13 PM CDT Progress Note Created by: Darryl Estrada M.D. DATE: 02/17/2010 SHEILA JADE DATE OF : 1935 AGE: [age] years old Referring Physician: ISRAEL MONTERROSO Referring Clinic: [facility] CURRENT DIAGNOSES 1. - CAD, 414.00 2. - Hypertension, benign, 401.1 3. Status post-PTCA, V45.82 4. - Hyperlipidemia, 272.4 ALLERGIES Ramipril, Dry cough MEDICATIONS (prior to changes made today) 1. Daily Multivitamin Tablet, 1 p.o. daily 2. Aspirin 81 Mg Tablet, 1 p.o. daily 3. Citracal Liquitab 500 Mg, 1 p.o. daily 4. Lysine 500 Mg Tablet, 1 p.o. daily 5. Omeprazole 20 mg Tablet, Delayed Release (E.C.), 2 p.o. daily 6. Crestor 40 Mg Tablet, 1 qHS 7. Zetia 10 Mg Tablet, 1 p.o. qHS 8. Trazodone 50 Mg Tablet, 1/2 tab qHS 9. Garlic Tablet, 1 p.o. daily 10. Green Tea [place] Extract 315 mg Capsule, 1 p.o. daily 11. Coenzyme Q10 30 mg Capsule, 1 p.o. daily 12. Glucosamine Chondroitin MaxStr 500-400 mg Capsule, 1 p.o. daily 13. Citracal + D 315-200 mg-unit Tablet, 1 p.o. daily 14. Vitamin C 500 mg Tablet, 1 p.o. daily 15. Nitrostat 0.4 Mg Tablet, Sublingual, Take as Directed CHIEF COMPLAINTS HISTORY OF PRESENT ILLNESS I had the pleasure of seeing your patient at [facility], for evaluation of coronary artery disease. The patient is status post circumflex artery myocardial infarction with posterolateral myocardial infarction and angioplasty of the circumflex artery in 1992. He had moderate disease in his left anterior descending at that time. His last stress echocardiogram performed March 02, 2009, demonstrated inferolateral hypokinesis with an ejection fraction of 45 to 50% with no evidence of ischemia otherwise. The patient has now been sober since his hospitalization at [facility] in July of 2008. He had one small sip of champagnethis summer and has not had any further alcohol. His fasting lipid profile from your office dated February 15, 2010, showed triglycerides 73, totalcholesterol 141, HDL 55, LDL 71 with an ALT of 55. The patient is not exercising to any major extent at this time. He is eating more sugared foods including ice cream. He has gained 10 to 12 pounds since I last saw him. We have added Zetia to his Crestor with improvement in his lipid profile. We again discussed a low fat, low calorie diet. PHYSICAL EXAMINATION: Current blood pressure is 112/60, pulse is 60 to 64 and regular, weight has ballooned to 217 pounds. Chest is clear to auscultation. Cardiac examination: Regular rhythm and rate, normal S1 and S2 with an S4 gallop, but no S3 or murmur. No jugular venous distention. Abdomen and extremities are benign. PAST HISTORY Past Medical Illnesses: hypercholesterolemia, peptic ulcer disease, carcinoma of the prostate, Alcohol abuse,inpatient treatment [facility] 07/28, sleep apnea Apr 2009, CPAP Past Cardiac Illnesses: S/P myocardial infarction-posterolateral May [...] echocardiogram April 2002, normal, stress echo Jan 2006, stress echo Feb 2009 Left Ventricular Ejection Fraction: EF 45-50% by Echo -Feb 2009 CT Results: 10/29 CT of chest r/t cough FAMILY HISTORY: Father - Age 66, 56 with [place] and from aortic aneurys and CAD; CARDIAC RISK FACTORS Tobacco Abuse: negative, used to smoke, but quit, 1992; Family History of Heart Disease: male<GT>55 y/o, positive; Hyperlipidemia: positive, LDL goal<LT>70; Hypertension: controlled by medication, positive; Diabetes Mellitus: negative; Prior History of Heart Disease: positive; Obesity:BMI<LT>25 (Normal), negative; Sedentary Life Style:positive; Age:positive ; LDL Goal <LT>70 SOCIAL HISTORY Alcohol Use - history of alcohol abuse, currently not drinking; Smoking - used to smoke but quit and quit 05-28-92; Diet - regular diet without modifications and caffeine use-none; Lifestyle - , children and 8; Exercise - no regular exercise and some walking; Seat Belt Use - always; Occupation - retired; Residence - lives with ; Place of - [place]; 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 EYES wears eye glasses/contact lenses EARS, NOSE, THROAT, MOUTH partial hearing loss, hearing aide(s) RESPIRATORY denies dyspnea, snoring, cough, wheezing or hemoptysis. CARDIOVASCULAR negative for palpitations, chest pain, orthopnea, PND, peripheral edema, syncope or claudication. ABDOMINAL indigestion GENITOURINARY-MALE recent history of prostate cancer and radical prostatectomy last week MUSCULOSKELETAL denies any history of venous insufficiency, arthritic symptoms or back problems. NEUROLOGICAL denies any history of recurrent headaches, strokes, TIA, or seizure disorder. PSYCHIATRIC denies any history of depression, substance abuse or change in cognitive functions. ENDOCRINE hyperlipidemia HEMATOLOGICAL/IMMUNOLOGIC seasonal allergies, B12 deficiency, and pernicious anemia with increased MCV PHYSICAL EXAMINATION VITAL SIGNS: Blood Pressure: 110/60Sitting, Right arm, large cuff Pulse- 68.00/min. Weight- 217.80 lbs. Height- 75.00 Temperature- .00 CONSTITUTIONAL cooperative, [...] equal in all extremities, no bruits auscultated. EXTREMITIES & BACK no deformities, clubbing, cyanosis, erythema or edema observed. There are no spinal abnormalities noted. Normal muscle strength and tone. NEUROLOGICAL no gross motor deficits noted, affect appropriate, oriented to time, person and place. MEDICATIONS UPDATED/STARTED TODAY: Aspirin 81 Mg Tablet, 1 p.o. daily, 0 Citracal + D 315-200 mg-unit Tablet, 1 p.o. daily, #0 Citracal Liquitab 500 Mg, 1 p.o. daily, #0 Coenzyme Q10 30 mg Capsule, 1 p.o. daily, #0 Crestor 40 Mg Tablet, 1 qHS, #0 Garlic Tablet, 1 p.o. daily, #0 Glucosamine Chondroitin MaxStr 500-400 mg Capsule, 1 p.o. daily, #0 Green Tea [place] Extract 315 mg Capsule, 1 p.o. daily, #0 Lysine 500 Mg Tablet, 1 p.o. daily, 0 Omeprazole 20 mg Tablet, Delayed Release (E.C.), 2 p.o. daily, #0 Trazodone 50 Mg Tablet, 1/2 tab qHS, 0 Vitamin C 500 mg Tablet, 1 p.o. daily, #0 Zetia 10 Mg Tablet, 1 p.o. qHS, #0 MEDICATIONS REFILLED/STOPPED TODAY: Crestor 40 mg Tablet 1 p.o. daily #90 Directions Changed-No Abbrvs, Trazodone 50 mg Tablet Take as Directed 0 Directions Changed-No Abbrvs, Campral 333 mg Tablet, Delayed Release (E.C.) 2 p.o. t.i.d.0 Directions Changed-No Abbrvs, Nexium 40 mg Capsule, Delayed Release(E.C.) 1 p.o. b.i.d. 0 Directions Changed- No Abbrvs, Zetia 10 mg Tablet 1 p.o. daily #90 Directions Changed-No Abbrvs, Aspirin 81 mg Tablet 1 p.o. q.d. 0 Directions Changed-No Abbrvs, Campral 333 Mg Tablet, Delayed Release (e.c.) 2 p.o. three times daily 0 Physician Order, Nexium 40 Mg Capsule, Delayed Release(e.c.) 1 p.o. twicedaily 0 Substitution, Lysine 500 mg Tablet 1 p.o. q.d. 0 Directions Changed-No Abbrvs, Citracal Liqu itab 500 mg 1 p.o. q.d. Directions Changed-No Abbrvs, Calcium 500 mg Tablet 1 p.o. daily DIRECTED Substitution, Calcium 500 mg Tablet 1 p.o. daily #0 Substitution and Calcium .. 1 p.o. daily DIRECTED Directions Changed-No Abbrvs IMPRESSIONS/PLAN 1. Sheila Jade is a delightful 74-year-old male with known coronary artery disease, who is stable at this time. We will repeat a stress echo in one year. He remains now on no beta ying or lisinopril due to his lower blood pressure. 2. Hyperlipidemia with high LPa. We will maintain an LDL [id number] as we are. 3. Alcoholism, currently sober. 4. Diet and exercise. The patient's states she may want to see a balancer in the [place] area. Thank you very much for allowing me to help care for this delightful patient. It is my plan to see this patient again in one year or earlier on an as needed basis. He should have a lipid profile at that time as well. TODAYS ORDERS 1. Return Visit 1 year 2. Stress echocardiogram, 1 year Darryl Estrada M.D. documented in this encounter Plan of Treatment Not on file documented as of this encounter Visit Diagnoses Not on filedocumented in this encounter Care Teams Surgical Scheduler Relationship Specialty Start Date End Date Shannan Alvarez MD PCP - General 07/06/01 04/14/14 Trip Villalobos MD PCP - General Family Practice 04/15/14 Williams Muñoz MD [address] [place] [address] Assigned Heart and Vascular Provider 04/05/20 12/12/20 Carlo Ramirez PA-C [address] [place] [id number] Assigned Heart and Vascular Provider 12/13/20 06/17/22 Williams Muñoz MD [address] [place] [address] Cardiovascular Disease 02/21/22 Williams Muñoz MD [address] [place] [address] Assigned Heart and Vascular Provider 06/18/22 07/22/22 Carlo Ramirez PA-C [address] [address] Assigned Heart and Vascular Provider 07/23/22 documented as of this encounter
--- OUTSIDE RECORDS SUMMARY | 2023-09-13 13:29 | XMS_ITS | Encounter Summary ---
Author Name Unknown Organization [place] Address [address] [place] [address]. [place] [address] Care Team Providers Care Brusher Tender Name Role Phone Doctor, Shannan CASTANEDA Primary Care Provider UnavailTrip Cornejo MD Primary Care Provider [phone] Williams Muñoz MD Unavailable RamirezCarlo PA-C Unavailable [phone] Williams Muñoz MD Unavailable Williams Muñoz MD Unavailable Ramirez, Carlo Alfonso PA-C Unavailable [phone] Encounter Details Date Type Department Care Team (Late st Contact Info) Description 02/03/2011 Office Visit-[facility] [address] [place] [address] Darryl Estrada MD Social History Tobacco Use Types Packs/Day Years Used Date Smoking Tobacco: Never Assessed Sex and Gender Information Value Date Recorded Sex Assigned at Male 05/10/2023 1:59 PM 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 DATE: 02/03/2011 SHEILA JADE DATE OF : 1935 AGE: [age] years old Referring Physician: TRIP VILLALOBOS Referring Clinic: [facility] CURRENT DIAGNOSES 1. - CAD, 414.00 2. - Hyperlipidemia, 272.4 3. Status post-PTCA, V45.82 4. - Hypertension, benign, 401.1 ALLERGIES Ramipril, Dry cough MEDICATIONS (prior to changes made today) 1. Aspirin 81 Mg Tablet, 1 p.o. daily 2. Citracal Liquitab 500 Mg, 1 p.o. daily 3. Lysine 500 Mg Tablet, 1 p.o. daily 4. Omeprazole 20 mg Tablet, Delayed Release (E.C.), 2 p.o. daily 5. Crestor 40 Mg Tablet, 1 qHS 6. Zetia 10 Mg Tablet, 1 p.o. qHS 7. Trazodone 50 Mg Tablet, 1/2 tab qHS 8. Garlic Tablet, 1 p.o. daily 9. Green Tea [place] Extract 315 mg Capsule, 1 p.o. daily 10. Coenzyme Q10 30 mg Capsule, 1 p.o. daily 11. Glucosamine Chondroitin MaxStr 500-400 mg Capsule, 1 p.o. daily 12. Citracal + D 315-200 mg-unit Tablet, 1 p.o. daily 13. Vitamin C 500 mg Tablet, 1 p.o. daily 14. Nitrostat 0.4 Mg Tablet, Sublingual, Take as Directed 15. Daily Multivitamin Tablet, 1 p.o. daily CHIEF COMPLAINTS HISTORY OF PRESENT ILLNESS I again had the pleasure of seeing your patient, Sheila Jade, at [facility] for evaluation of coronary artery disease. The patient is status post circumflex artery myocardial infarction, with posterolateral myocardial infarction and angioplasty of the circumflex artery in 1992. He also had moderate disease in the left anterior descending artery at that time. His most recent stress echocardiogram on January 20 demonstrated no areas of ischemia or infarction. In particular, the small inferolateral wall motion abnormality was no longer identified. His ejection fraction was 55-60% and he was able to exercise 6 minutes, 45 seconds. He denies any recurrent angina. He is now being evaluated for anemia and profound iron deficiency. This may be related to previous stomach surgery and malabsorption of iron. He continues to remain sober from his previous alcohol addiction. His most recent lipid profile from your office includes triglycerides of 61, total cholesterol 127,HDL 60, LDL 55, and ALT of 38. The patient is exercising by doing some walking. He has gained some weight and his notes that he is having ice cream nearly every night. On physical exam, current blood pressure is 120/68, pulse is 60 and regular, weight 223 pounds. BMIis 28. Chest is clear to auscultation. Cardiac exam: Regular rate and rhythm. Normal S1 and S2, with an S4 gallop, but no S3 or murmur. No jugular venous distention. Abdomen and extremities are benign. PAST HISTORY Past Medical Illnesses: hypercholesterolemia, peptic ulcer disease, carcinoma of the prostate, Alcohol abuse,inpatient treatment [facility] 07/28, sleep apnea Apr 2009, CPAP Past Cardiac Illnesses: S/P myocardial infarction-posterolateral May 1992 Infectious History: no previous history of significant infectious diseases. Trauma History: no previous history of significant trauma. Surgeries/Procedures - General: appendectomy over 20 years ago, vagotomy and partial gastrectomy for PUD,1974, radical prostatectomy 03/10/04 for cancer, right hand surgery,01/2007 Cardiac/Vasc Procedures-Invasive: cardiac cath (left) mid CFX May 1992, PTCA of the mid CFX May 1992 Cardiology Procedures-NonInvasive: stress echocardiogram Apr 2002, Jan 2006, Feb 2009, Jan 2011 PMHx Stress Echo Results: 01/2011 normal stress echocardiogram Left Ventricular Ejection Fraction: EF 45-50% by Echo -Feb 2009 CT Results: 10/29 CT of chest r/t cough FAMILY HISTORY: Father - Age 66, 56 with [place] and from aortic aneurys and CAD; CARDIAC [...] - regular diet without modifications and caffeine use-rare; Lifestyle - , children and 8; Exercise - no regular exercise, some walking and 2-3 X/week; Seat Belt Use - always; Occupation - retired; Residence - lives with ; Place of - [place]; 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 EYES wears eye glasses/contact lenses, no blurred vision, eye pain, or discharge. EARS, NOSE, THROAT, MOUTH partial hearing loss, hearing aide(s), seasonal sinusitis RESPIRATORY dyspnea with exertion, stairs, sleep apnea, cpap CARDIOVASCULAR negative for palpitations, chest pain, orthopnea, [...] MCV PHYSICAL EXAMINATION VITAL SIGNS: Blood Pressure: 120/68Sitting, Right arm, large cuff Pulse- 60.00/min. Weight- 223.10 lbs. Height- 75.00 Temperature- .00 CONSTITUTIONAL cooperative, [...] time, person and place. MEDICATIONS UPDATED/STARTED TODAY: IMPRESSIONS/PLAN 1. Sheila Jade is a delightful 75-year-old male with known coronary artery disease who is stable at this time. His stress echocardiogram does not reveal any ischemia or infarction. We will continue with his current medications. 2. Hyperlipidemia, with high Lp(a). His LDL should be kept below 70. 3. Alcoholism, currently sober. 4. Diet and exercise. This was discussed at length. Thank you very much for allowing me to help care for this delightful patient. It is my intention tosee this patient again in one year, or earlier on a p.r.n. basis as you direct. TODAYS ORDERS 1. Return Visit 1 year Darryl Estrada M.D. documented in this encounter Plan of Treatment Not on file documented as of this encounter Visit Diagnoses Not on filedocumented in this encounter Care Teams Brusher Tender Relationship Specialty Start Date End Date DoctorShannan MD PCP - General 07/06/01 04/14/14 Trip Villalobos MD PCP - General Family Practice 04/15/14 Williams Muñoz MD [address] [place] [id number] Assigned Heart and Vascular Provider 04/05/20 12/12/20 Carlo Ramirez PA-C [address] [place] [address] Assigned Heart and Vascular Provider 12/13/20 06/17/22 Williams Muñoz MD [address] [place] [address] Cardiovascular Disease 02/21/22 Williams Muñoz MD [address] [place] [id number] Assigned Heart and Vascular Provider 06/18/22 07/22/22 Carlo Ramirez PA-C [address] [id number] Assigned Heart and Vascular Provider 07/23/22 documented as of this encounter
--- OUTSIDE RECORDS SUMMARY | 2023-09-13 13:29 | XMS_ITS | Encounter Summary ---
Author Name Unknown Organization [place] Address [address] [place] [address]. [place] [address] Care Team Providers Care Physical Science Teacher Name Role Phone Doctor, Shannan CASTANEDA Primary Care Provider UnavailTrip Cornejo MD Primary Care Provider [phone] Williams Muñoz MD Unavailable RamirezCarlo PA-C Unavailable [phone] Williams Muñoz MD Unavailable Williams Muñoz MD Unavailable Ramirez, Carlo Alfonso PA-C Unavailable [phone] Encounter Details Date Type Department Care Team (Late st Contact Info) Description 03/05/2012 Office Visit-[facility] [address] [place] [address] Darryl Estrada MD Social History Tobacco Use Types Packs/Day Years Used Date Smoking Tobacco: Never Assessed Sex and Gender Information Value Date Recorded Sex Assigned at Male 05/10/2023 1:59 PM 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 DATE: 03/05/2012 SHEILA JADE DATE OF : 1935 AGE: [age] years old Referring Physician: TRIP VILLALOBOS Referring Clinic: [facility] CURRENT DIAGNOSES 1. - CAD, 414.00 2. - Hyperlipidemia, 272.4 3. Status post-PTCA, V45.82 4. - Hypertension, benign, 401.1 ALLERGIES Ramipril, Dry cough MEDICATIONS (prior to changes made today) 1. Aspirin 81 Mg Tablet, 1 p.o. daily 2. Citracal + D 315-200 mg-unit Tablet, 1 p.o. daily 3. Crestor 40 Mg Tablet, 1 qHS 4. Daily Multivitamin Tablet, 1 p.o. daily 5. Garlic Tablet, 1 p.o. daily 6. Glucosamine Chondroitin MaxStr 500-400 mg Capsule, 1 p.o. daily 7. Green Tea [place] Extract 315 mg Capsule, 1 p.o. daily 8. lutein 10 mg tablet, 1 p.o. daily 9. Lysine 500 Mg Tablet, 1 p.o. daily 10. Nitrostat 0.4 mg Tablet, Sublingual, Take as Directed 11. Omeprazole 20 mg Tablet, Delayed Release (E.C.), 2 p.o. daily 12. Trazodone 50 Mg Tablet, 1/2 tab qHS 13. Vitamin C 500 mg Tablet, 1 p.o. daily 14. Zetia 10 mg tablet, 1 p.o. qHS CHIEF COMPLAINTS HISTORY OF PRESENT ILLNESS I again had the pleasure of seeing your patient, Sheila Jade, at the [facility] for evaluation of coronary artery disease. The patient is status post circumflex artery myocardial infarction with posterolateral myocardial infarction. He had angioplasty of the circumflex artery in 1992. He had moderate disease in the left anterior descending artery at that time. A stress echocardiogram done on January 20, 2011 demonstrated no areas of ischemia or infarction.Ejection fraction was 55% to 60%. The small inferolateral wall motion abnormality that was previously noted was gone. His anemia has been treated with iron supplementation with improvement. He continues to not smoke cigarettes and remains sober. His fasting lipid profile from your office was under excellent control. On occasion, he continues to have too many calories. On physical exam, his current blood pressure was 140/70. Pulse was 72 and regular. Weight was 226 pounds, which is an 8 pound weight gain over the last two years. BMI was 28. Chest was clear to auscultation. Cardiac exam revealed a regular rate and rhythm. S1 and S2 were normal. There was an S4 gallop. No S3 or murmur. No JVD. Abdomen and extremities were benign. PAST HISTORY Past Medical Illnesses: hypercholesterolemia, peptic ulcer disease, carcinoma of the prostate, Alcohol abuse,inpatient treatment [facility] 07/28, sleep apnea Apr 2009, CPAP Past [...] Results: 10/29 CT of chest r/t cough EF 45-50% by Echo -Feb 2009 FAMILY HISTORY: Father - Age 66, 56 with [place] and from aortic aneurys and CAD; CARDIAC [...] quit 05-28-92; Diet - regular diet without modifications, caffeine use-rare 1-2 decaf tea and occasregular; Lifestyle - , children and 8; Exercise - no regular exercise, some walking and 2-3 X/week; Seat Belt Use - always; Occupation - retired; Residence - lives with ; Place of - [place]; 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 EYES wears eye glasses/contact lenses, cataracts, both eye , right is worse EARS, NOSE, THROAT, MOUTH partial hearing loss, hearing aide(s), seasonal sinusitis RESPIRATORY sleep apnea, uses c-pap CARDIOVASCULAR negative for palpitations, chest pain, orthopnea, PND, peripheral edema, syncope or claudication. ABDOMINAL history of GERD GENITOURINARY-MALE recent history of prostate cancer and radical prostatectomy MUSCULOSKELETAL denies any history of venous insufficiency, arthritic symptoms or back problems. NEUROLOGICAL denies any history of recurrent headaches, strokes, TIA, or seizure disorder. PSYCHIATRIC denies any history of depression, substance abuse or change in cognitive functions. ENDOCRINE hyperlipidemia HEMATOLOGICAL/IMMUNOLOGIC seasonal allergies, B12 deficiency, and pernicious anemia with increased MCV PHYSICAL EXAMINATION VITAL SIGNS: Blood Pressure: 140/70Sitting, Right arm, large cuff Pulse- 72.00/min. Weight- 226.00 lbs. Height- 75.00 BMI Measurement: 28 CONSTITUTIONAL cooperative, alert and oriented,well developed, well [...] time, person and place. MEDICATIONS UPDATED/STARTED TODAY: lutein 10 mg tablet, 1 p.o. daily, #0 (Zero) MEDICATIONS REFILLED/STOPPED TODAY: Citracal Liquitab 500 Mg 1 p.o. daily #0 Patient Terminated and Coenzyme Q10 30 mg Capsule 1 p.o. daily #0 Patient Terminated IMPRESSIONS/PLAN 1. Sheila Jade is a delightful 76-year-old male with known coronary artery disease. He is currently stable. His stress test done one year ago did not reveal any ischemia or infarction. I have made no medication changes. 2. Hyperlipidemia with high Lp(a). His LDL is being kept at around 70 or below. 3. Alcoholism. He is currently sober. 4. Again, we discussed diet, exercise, and weight loss extensively. Thank you very much for allowing me to help care for this delightful patient. I will see him again in one year and will decide regarding a stress test in the next few years. TODAYS ORDERS 1. Return Visit 1 year Darryl Estrada M.D. documented in this encounter Plan of Treatment Not on file documented as of this encounter Visit Diagnoses Not on filedocumented in this encounter Care Teams Physical Science Teacher Relationship Specialty Start Date End Date DoctorShannan MD PCP - General 07/06/01 04/14/14 Trip Villalobos MD PCP - General Family Practice 04/15/14 Williams Muñoz MD [address] [place] [id number] Assigned Heart and Vascular Provider 04/05/20 12/12/20 Carlo Ramirez PA-C [address] [id number] Assigned Heart and Vascular Provider 12/13/20 06/17/22 Williams Muñoz MD [address] [place] [id number] Cardiovascular Disease 02/21/22 Williams Muñoz MD [address] [place] [address] Assigned Heart and Vascular Provider 06/18/22 07/22/22 Carlo Ramirez PA-C [address] [id number] Assigned Heart and Vascular Provider 07/23/22 documented as of this encounter
--- OUTSIDE RECORDS SUMMARY | 2023-09-13 13:29 | XMS_ITS | Referral Summary ---
Author Name Unknown Organization [place] Address [address] [place] [address] Care Team Providers Care Cement Sprayer Helper Name Role Phone Trip Villalobos MD Primary Care Provider Williams Muñoz MD Unavailable Carlo Ramirez PA-C Unavailable [phone] Encounters Date Type Department Care Team Description 09/07/2023 Refill [facility] [address] [place] [address] Carlo Ramirez PA-C Refill Request (Coreg) 06/29/2023 Refill [facility] [address] [place] [address] Carlo Ramirez PA-C Refill Request (Isosorbide) from Last 3 Months Allergies Active Allergy Reactions Criticality Noted Date [...] 0.4 MG sublingual tabletIndications:Co ronary atherosclerosis of [place] coronary artery Place 1 tablet (0.4 mg) under the tongue every 5 minutes as needed for chest pain May repeat X 2. If no relief after 3 tablets call 911 25 tablet 07/05/2019 Active Additional Information Patient not taking.Reported on 07/20/2022 losartan 100 MG PO tabletIndications:Be nign essential hypertension,Coronar y artery disease involving [place] coronary artery of [place] heart without angina pectoris Take 1 tablet (100 mg) by mouth daily 30 tablet 3 07/10/2019 Active Psyllium (METAMUCIL PO) Active Loratadine (KLS ALLERCLEAR PO) Active diphenhydrAMINE HCl (BENADRYL ALLERGY PO) Take by mouth as needed Active amoxicillin-clavulan ate (AUGMENTIN) 875-125 MG tablet 05/09/2022 Active ezetimibe (ZETIA) 10 MG tabletIndications:At herosclerosis of [place] coronary artery of [place] heart without angina pectoris Take 1 tablet (10 mg) by mouth daily 90 tablet 3 07/20/2022 Active ACETAMINOPHEN PO Take 500 mg by mouth every 4 hours as needed for pain Active Menaquinone-7 (VITAMIN K2 PO) Active isosorbide mononitrate (IMDUR) 30 MG 24 hr tabletIndications:At herosclerosis of [place] coronary artery of [place] heart without angina pectoris,OSEGUERA (dyspnea on exertion) [...] left anterior descending artery at that time. Social History Tobacco Use Types Packs/Day Years [...] Sex Assigned at Male 05/10/2023 1:59 PM TELEHEALTH COORDINATOR Gender Identity Male 05/10/2023 1:59 PM TELEHEALTH COORDINATOR Sexual Orientation Not on file Last Filed Vital Signs Vital Sign Reading Time Taken Comments Blood Pressure 151/76 06/01/2023 1:50 PM TELEHEALTH COORDINATOR Pulse 85 06/01/2023 1:50 PM TELEHEALTH COORDINATOR Temperature - - Respiratory Rate - - Oxygen Saturation 98% 06/01/2023 1:50 PM TELEHEALTH COORDINATOR Inhaled Oxygen Concentration - - Weight 99.8 kg (220 lb) 05/11/2023 10:29 AM TELEHEALTH COORDINATOR Height 189.2 cm (6' 2.5) 05/11/2023 10:29 AM CS T Body Mass Index 27.87 05/11/2023 10:29 AM TELEHEALTH COORDINATOR Plan of Treatment Not on file Procedures Procedure Name Priority Date/Time Associated Diagnosis Comments LIPID PROFILE Routine 01/25/2018 from Last 3 Months or Most Recently Relevant to Health Maintenance Results * Lipid Profile (01/25/2018) Cholesterol mg/dL EDWARD Petty [facility] Triglycerides mg/dL [facility] HDL Cholesterol 66 40 mg/dL TONY KNUTSON [facility] LDL Cholesterol Calculated 91 100 mg/dL [facility] Non HDL Cholesterol mg/dl [facility] Blood specimen (specimen) 01/25/2018 Patient Reported LAB - BLOOD ORDERABL ES [facility] [address] [phone] from Last 3 Months or Most Recently Relevant to Health Maintenance Care Teams Cement Sprayer Helper Relationship Specialty Start Date End Date Trip Villalobos MD PCP - General Family Practice 04/15/14 Williams Muñoz MD [address] [place] [address] Cardiovascular Disease 02/21/22 Carlo Ramirez, PADamonC [address] [facility] [place] [address] Assigned Heart and Vascular Provider 07/23/22
--- OUTSIDE RECORDS SUMMARY | 2023-09-13 13:29 | XMS_ITS | Encounter Summary ---
Author Name Unknown Organization [place] Address [address] [place] [address]. [place] [address] Care Team Providers Care Older Adult Social Work Specialist Name Role Phone Trip Villalobos MD Primary Care Provider [phone] Williams Muñoz MD Unavailable Carlo Ramirez PA-C Unavailable Reason for Visit * Reason Onset Date Comments Refill Request 09/07/2023 Coreg Encounter Details Date Type Department Care Team (Late st Contact Info) Description 09/07/2023 [facility] [address] [place] [address] [address] [place] [address] Carlo Ramirez PA-C [address] [place] [address] Refill Request (Coreg) Social History Tobacco Use Types Packs/Day Years [...] Sex Assigned at Male 05/10/2023 1:59 PM RETAIL ASSOCIATE Gender Identity Male 05/10/2023 1:59 PM RETAIL ASSOCIATE Sexual Orientation Not on file documented as of this encounter Miscellaneous Notes * Telephone Encounter - Barby Pantoja, RN - 09/07/2023 3:59 PM CDT [facility] Refill Guideline reviewed. Medication meets criteria for refill. documented in this encounter Plan of Treatment Not on file documented as of this encounter Visit Diagnoses Diagnosis Benign essential hypertension Essential hypertension, benign documented in this encounter Care Teams Older Adult Social Work Specialist Relationship Specialty Start Date End Date Trip Villalobos MD PCP - General Family Practice 04/15/14 Williams Muñoz MD [address] [facility] [address] [place], [place] [address] Cardiovascular Disease 02/21/22 Carlo Ramirez PA-C [address] [place], [place] [address] Assigned Heart and Vascular Provider 07/23/22 documented as of this encounter
--- OUTSIDE RECORDS SUMMARY | 2023-09-13 13:29 | XMS_ITS | Encounter Summary ---
Author Name Unknown Organization [facility] Address [address] [place] [address]. [place] [address] Care Team Providers Care Nursing Student Name Role Phone Doctor, Shannan CASTANEDA Primary Care Provider UnavailTrip Cornejo MD Primary Care Provider [phone] Williams Muñoz MD Unavailable RamirezCarlo PA-C Unavailable [phone] Williams Muñoz MD Unavailable Williams Muñoz MD Unavailable Ramirez, Carlo Alfonso PA-C Unavailable [phone] Encounter Details Date Type Department Care Team (Late st Contact Info) Description 03/04/2009 Office Visit-[facility] [address] [place] [address] Darryl Estrada MD Social History Tobacco Use Types Packs/Day Years Used Date Smoking Tobacco: Never Assessed Sex and Gender Information Value Date Recorded Sex Assigned at Male 05/10/2023 1:59 PM 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 DATE: 03/04/2009 SHEILA JADE DATE OF : 1935 AGE: [age] years old Referring Physician: AVA CARVER Referring Clinic: [facility] CURRENT DIAGNOSES 1. - CAD, 414.00 2. - Hypertension, benign, 401.1 3. Status post-PTCA, V45.82 4. - Hyperlipidemia, 272.4 ALLERGIES altace, Dry,hacky cough MEDICATIONS (prior to changes made today) 1. Calcium .., 1 p.o. daily 2. Lysine 500 mg, 1 p.o. q.d. 3. Citracal Liquitab 500 mg, 1 p.o. q.d. 4. Nitrostat 0.4 mg, Take as Directed 5. Crestor 40 mg, 1 p.o. daily 6. Trazodone Hydrochloride 50 mg, Take as Directed 7. multivitamin daily, 1 p.o. daily 8. Campral 333 mg, 2 p.o. t.i.d. 9. Nexium 40 Mg., 1 p.o. b.i.d. 10. Aspirin 81 mg, 1 p.o. q.d. CHIEF COMPLAINTS F/u stress echo. HISTORY OF PRESENT ILLNESS I again had the pleasure of seeing your patient, Sheila Jade, at [facility] for evaluation of coronary artery disease. The patient is status post circumflex artery myocardial infarction with posterolateral AL and angioplasty of the circumflex artery in 1992. He had moderate disease in his LAD at that time. His last stress echocardiogram was completed on March 02 demonstrating the inferior and inferolateral myocardial infarction and an ejection fraction of 45-50%. No other areas of ischemia were noted. The patient has been sober since his alcohol crisis earlier this year. He feels somewhat cold much of the time. He has been taken off many of his medications due to hypotension,including his beta-ying, hydrochlorothiazide, and his ARB. He remains on his Crestor and aspirin. His lipid profile on March 03 included triglycerides of 82, total cholesterol 183, HDL 57, and LDL 110. He notes that his diet is full of high cholesterol foods, including ice cream, shrimp, and ba con. He denies angina. He denies PND, orthopnea, peripheral edema, syncope, or presyncope. On physical exam, current blood pressure is 102/70, pulse is 64 and regular, weight 206 pounds. Chest is clear to auscultation. Cardiac exam: Regular rate and rhythm. Normal S1 and S2 with an S4 gallop, but no S3 or murmur. No JVD. Abdomen and extremities are benign. PAST HISTORY Past Medical Illnesses: hypercholesterolemia, peptic ulcer disease, carcinoma of the prostate, Alcohol abuse,inpatient treatment [facility] 07/28 Past Cardiac Illnesses: S/P myocardial infarction-posterolateral May [...] Fraction: EF 45-50% by Echo -Feb 2009 FAMILY HISTORY: Father - Age 66, 56 with [place] and from aortic aneurys and CAD; CARDIAC RISK FACTORS Tobacco Abuse: negative, used to smoke, but quit, 1992; Family History of Heart Disease: male55 y/o, positive; Hyperlipidemia: positive, LDL goal<LT>70; Hypertension: controlled by medication, positive; Diabetes Mellitus: negative; Prior History of Heart Disease: positive; Obesity:BMI<LT>25 (Normal), negative; Sedentary Life Style:positive; Age:positive ; LDL Goal <LT> 70 SOCIAL HISTORY Alcohol Use - history of alcohol abuse, currently not drinking; Smoking - used to smoke but quit and quit 05-28-92; Diet - regular diet without modifications and caffeine use-none; Lifestyle - , children and 8; Exercise - some exercise and walking; Seat Belt Use - always; Occupation - retired; Residence - lives with ; Place of - [place]; 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 INTEGUMENTARY denies any change in hair or nails, rashes, or skin lesions. EYES wears eye glasses/contact lenses EARS, NOSE, THROAT, MOUTH partial hearing loss, hearing aide(s) RESPIRATORY dry cough, recent cold CARDIOVASCULAR negative for palpitations, chest pain, orthopnea, [...] MCV PHYSICAL EXAMINATION VITAL SIGNS: Blood Pressure: 102/70 Sitting, Right arm, large cuff Pulse- 64.00/min. Weight- 206.00 lbs. Height- 75.00 Temperature- .00 CONSTITUTIONAL cooperative, [...] time, person and place. MEDICATIONS UPDATED/STARTED TODAY: Calcium .., 1 p.o. daily, DIRECTED Crestor 40 mg, 1 p.o. daily, #90 MEDICATIONS REFILLED/STOPPED TODAY: Crestor 20 Mg 1 p.o. q.d. #90 Dosage Increased, Tylenol 500 mg prn 0 Treatment Completed and Ferrous Sulfate 325 mg 1 p.o. daily 0 Treatment Completed IMPRESSIONS/PLAN 1. Sheila Jade is a delightful 73-year-old male with known coronary artery disease who is stable at this time. His stress echocardiogram does not indicate any ongoing ischemia. I would like to placehim back on his beta-ying and ARB. However, his blood pressure is so low I am not sure we can yet. I have made no changes in his medications. 2. Hyperlipidemia. He has a high Lp(a) and we are trying to maintain an LDL below 70. I have asked this patient to renew his diet and exercise and we willrecheck his lipids in six months. We will then consider readantonio Hampton. 3. Alcoholism, currently sober. Thank you very much for allowing me to help care for this delightful patient. Should you have any questions regarding his care, please feel free to contact me at any time in the future. TODAYS ORDERS 1. Return Visit 1 year 2. Lipid profile/ALT 6 months Darryl Estrada M.D. documented in this encounter Plan of Treatment Not on file documented as of this encounter Visit Diagnoses Not on filedocumented in this encounter Care Teams Nursing Student Relationship Specialty Start Date End Date Shannan Alvarez MD PCP - General 07/06/01 04/14/14 Trip Villalobos MD PCP - General Family Practice 04/15/14 Williams Muñoz MD [address] [place], [place] [id number] Assigned Heart and Vascular Provider 04/05/20 12/12/20 Carlo Ramirez PA-C [address] [place], [place] [address] Assigned Heart and Vascular Provider 12/13/20 06/17/22 Williams Muñoz MD [address] [place] [address] Cardiovascular Disease 02/21/22 Williams Muñoz MD [address] [place] [address] Assigned Heart and Vascular Provider 06/18/22 07/22/22 Carlo Ramirez PA-C [address] [place] [address] Assigned Heart and Vascular Provider 07/23/22 documented as of this encounter
--- OUTSIDE RECORDS SUMMARY | 2023-09-13 13:29 | XMS_ITS ---
Author Name Unknown Organization [facility] Address [address] [place] [address] Care Team Providers Care Transcription Specialist Name Role Phone Unavailable Unavailable Unavailable Surgery Details Not on file Complications Check Surgery Details section. Procedure Estimated Blood Loss Check Surgery Details section. Procedure Findings Check Surgery Details section. Procedure Specimens Taken Check Surgery Details section.
--- OUTSIDE RECORDS SUMMARY | 2023-09-13 13:29 | XMS_ITS | Encounter Summary ---
Author Name Unknown Organization [facility] Address [address] [place] [address]. [place] [address] Care Team Providers Care Unishear Operator Name Role Phone Trip Villalobos MD Primary Care Provider Carlo Ramirez PA-C Unavailable [phone] Williams Muñoz MD Unavailable Williams Muñoz MD Unavailable Carlo Ramirez PA-C Unavailable [phone] Encounter Details Date Type Department Care Team (Late st Contact Info) Description 05/11/2022 [facility] [address] [place] [address] Williams Muñoz MD [address] [facility] [address] [place] [address] Social History Tobacco Use Types Packs/Day Years Used Date Smoking Tobacco: Former Smokeless Tobacco: Never Comments:Quit 1992 Alcohol Use Standard Drinks/Week Comments No 0 (1 standard drink = 0.6 oz pur e alcohol) none since 2008 Sex and Gender Information Value Date Recorded Sex Assigned at Male 05/10/2023 1:59 PM 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 No / Unsure 05/03/2022 8:41 AM [employer] documented as of this encounter Plan of Treatment Not on file documented as of this encounter Visit Diagnoses Not on filedocumented in this encounter Care Teams Unishear Operator Relationship Specialty Start Date End Date Trip Villalobos MD PCP - General Family Practice 04/15/14 Carlo Ramirez PA-C [address] [place], [place] [id number] Assigned Heart and Vascular Provider 12/13/20 06/17/22 Williams Muñoz MD [address] [place], [place] [address] Cardiovascular Disease 02/21/22 Williams Muñoz MD [address] [place] [address] Assigned Heart and Vascular Provider 06/18/22 07/22/22 Carlo Ramirez PA-C [address] [place], [place] [address] Assigned Heart and Vascular Provider 07/23/22 documented as of this encounter
--- OUTSIDE RECORDS SUMMARY | 2023-09-13 13:29 | XMS_ITS | Encounter Summary ---
Author Name Unknown Organization [facility] Address [address] [place] [address]. [place] [address] Care Team Providers Care Valet Service Attendant Name Role Phone Shannan Alvarez MD Primary Care Provider UnavailTrip Cornejo MD Primary Care Provider [phone] Williams Muñoz MD Unavailable Ramirez, Carlo Alfonso PA-C Unavailable [phone] Williams Muñoz MD Unavailable Williams Muñoz MD Unavailable Ramirez, Carlo Alfonso PA-C Unavailable [phone] Encounter Details Date Type Department Care Team (Late st Contact Info) Description 02/15/2005 Office Visit-[facility] [address] [place] [address] Unknown, MD Antonio Social History Tobacco Use Types Packs/Day Years Used Date Smoking Tobacco: Never Assessed Sex and Gender Information Value Date Recorded Sex Assigned at Male 05/10/2023 1:59 PM RECORD FILING CLERK Gender Identity Male 05/10/2023 1:59 PM RECORD FILING CLERK Sexual Orientation Not on file documented as of this encounter Progress Notes * Unknown, MD Antonio - 02/18/2005 12:11 PM CDT Progress Note Created by: Darryl Estrada M.D. DATE: 02/15/2005 SHEILA JADE DATE OF : 1935 AGE: [age] years old Referring Physician: HECTOR HADLEY Referring Clinic: [facility] CURRENT DIAGNOSES 1. Personal History Of Alcoholism, V11.3 2. - Hyperlipidemia, 272.4 3. - CAD, 414.00 4. 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 - Hypertension, benign, 401.1 6. Status post-PTCA, V45.82 ALLERGIES altace, Dry,hacky cough MEDICATIONS (including any changes made today) 1. Lysine 500 mg, 1 p.o. q.d. 2. garlic 1000 mg, 1250mg qd 3. Folgard Rx 2.2 mg, 1 p.o. q.d. 4. Folic Acid 1 Mg, 1 p.o. q.d. 5. Citracal Liquitab 500 mg, 1 p.o. q.d. 6. Diovan HCT 12.5 mg-160 mg, 1 p.o. q.d. 7. Ferrous Sulfate 324 mg, 1 p.o. q.d. 8. Aspirin 81 mg, 1 p.o. q.d. 9. Zocor 40 mg, 1 p.o. qPM 10. Zetia 10 mg, 1 p.o. q.d. 11. Zoloft 50 mg, 1 p.o. q.d. 12. Doxepin Hydrochloride 25 mg, 1 qHS CHIEF COMPLAINTS F/u HISTORY OF PRESENT ILLNESS I again had the pleasure of seeing your patient, Sheila Jade, at [facility] on February 15, 2005. As you may recall, this patient is a delightful 69-year-old male status post circumflexmyocardial infarction and posterolateral myocardial infarction with angioplasty of his circumflex artery in 1992. He had moderate disease within his LAD at that time. He retired from [employer] shortly thereafter. He has done well since that time without recurrent angina. His liver functiontests have improved. He continues to drink alcohol probably to excess. He is status post radical prostatectomy in February of last year. He was placed in an alcohol detox unit for 36 hours to verify that he was not going to go into DTs. He is now drinking 3-4 ounces of alcohol per day. He has regained his bladder function but as of yet remains somewhat impotent. He denies angina, syncope, or presyncope. He is status post gastrectomy and vagotomy for peptic ulcer disease. He has some nipple pain since his surgery and is being seen by Dr. Jo Harman. He has a history of normal triglycerides and very high HDL, along with high LDL cholesterol. More recently his LDL cholesterol was 80, with hisHDL 86, and normal triglycerides. The patient has a history of Lp(a) elevation and generally his LDL goal is less than 70. He also has a history of hyperhomocystinemia which has not been checked in several years. He does not have a history of diabetes. He is walking for 30 minutes nearly every day with his but at a slow pace. On physical exam, current blood pressure is 140/80, pulse is 76 and regular. Weight is stable. Chest is clear. Cardiac exam: Regular rate [...] HISTORY: Father - Age 66, 56 with [place] and from aortic aneurys and CAD; CARDIAC RISK FACTORS Tobacco Abuse: negative, used to smoke, but quit, 1992; Family History of Heart Disease: male55 y/o, positive; Hyperlipidemia: controlled, positive; Hypertension: controlled by medication, positive; Diabetes Mellitus: negative; Prior History of Heart Disease: positive; Obesity:BMI<LT>25 (Normal), negative; Sedentary Life Style:positive; Age:positive SOCIAL HISTORY Alcohol Use - drinks regularly; Smoking - used to smoke but quit and quit 05-28-92; Diet - regular diet; Lifestyle - , children and 8; Exercise - some exercise and walking; Seat Belt Use - always; Occupation - retired; Residence - lives with ; Place of - [place]; 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 INTEGUMENTARY denies any change in hair or nails, rashes, or skin lesions. EYES wears eye glasses/contact lenses EARS, NOSE, THROAT, MOUTH partial hearing loss RESPIRATORY denies dyspnea, cough, wheezing or hemoptysis. CARDIOVASCULAR negative for palpitations, chest pain, orthopnea, PND, peripheral edema, syncope or claudication., sore nipples ABDOMINAL excess gas GENITOURINARY-MALE recent history of prostate cancer and radical prostatectomy last week MUSCULOSKELETAL denies any history of venous insufficiency, arthritic symptoms or back problems. NEUROLOGICAL denies any history of recurrent strokes, TIA, or seizure disorder. PSYCHIATRIC denies any history of depression, substance abuse or change in cognitive functions. ENDOCRINE hyperlipidemia HEMATOLOGICAL/IMMUNOLOGIC seasonal allergies PHYSICAL EXAMINATION VITAL SIGNS: Blood Pressure: 140/80 Sitting, Right arm, large cuff Pulse- 76.00/min. Weight- 209.00 lbs. Height- 75.00 Temperature- .00 CONSTITUTIONAL cooperative, [...] oriented to time, person and place. MEDICATIONS UPDATED TODAY: Diovan HCT 12.5 mg-160 mg, 1 p.o. q.d., #90 Zoloft 50 mg, 1 p.o. q.d., 0 Doxepin Hydrochloride 25 mg, 1 qHS, 0 MEDICATION STOPPED TODAY: Hctz 25 Mg IMPRESSIONS/PLAN 1. Sheila Jade is a delightful 69-year-old male with known coronary artery disease which is currently stable. His last stress echo in January,, demonstrated no areas of ischemia or infarction. He is asymptomatic and we will not perform a follow up stress test at this time. 2. History of hyperlipidemia with high Lp(a) and LDL cholesterol. His ALT has all but normalized currently. I have cautioned him that he really should discontinue his alcohol and I have asked him to talk to you about this. In the meantime we will recheck his lipids in nine months. Should his LDL not be below 70 at that time, we will consider increasing his Zocor to 80 mg q.d. or changing to a more potent medication such as Lipitor or Crestor. Thank you very much for allowing me to help care for this delightful patient. Should you have any questions regarding his care, please feel free to contact me at any time in the future. I will keep you informed of his lipid and homocysteine levels in nine months. TODAYS ORDERS 1. Return Visit 9 months Darryl Estrada M.D. documented in this encounter Plan of Treatment Not on file documented as of this encounter Visit Diagnoses Not on filedocumented in this encounter Care Teams Valet Service Attendant Relationship Specialty Start Date End Date Doctor, MD Shannan PCP - General 07/06/01 04/14/14 Trip Villalobos MD PCP - General Family Practice 04/15/14 Williams Muñoz MD [address] [place] [id number] Assigned Heart and Vascular Provider 04/05/20 12/12/20 Carlo Ramirez PA-C [address] [id number] Assigned Heart and Vascular Provider 12/13/20 06/17/22 Williams Muñoz MD [address] [place] [address] Cardiovascular Disease 02/21/22 Williams Muñoz MD [address] [place] [address] Assigned Heart and Vascular Provider 06/18/22 07/22/22 Carlo Ramirez PA-C [address] [place] [address] Assigned Heart and Vascular Provider 07/23/22 documented as of this encounter
--- OUTSIDE RECORDS SUMMARY | 2023-09-13 13:29 | XMS_ITS | Encounter Summary ---
Author Name Unknown Organization [facility] Address [address] [place] [address]. [place] [address] Care Team Providers Care Superintendent System Operation Name Role Phone Doctor, Shannan CASTANEDA Primary Care Provider UnavailTrip Cornejo MD Primary Care Provider [phone] Williams Muñoz MD Unavailable RamirezCarlo PA-C Unavailable [phone] Williams Muñoz MD Unavailable Williams Muñoz MD Unavailable Ramirez, Carlo Alfonso PA-C Unavailable [phone] Encounter Details Date Type Department Care Team (Late st Contact Info) Description 04/10/2013 Office Visit-[facility] [address] [place] [address] Darryl Estrada MD Social History Tobacco Use Types Packs/Day Years Used Date Smoking Tobacco: Never Assessed Sex and Gender Information Value Date Recorded Sex Assigned at Male 05/10/2023 1:59 PM TOP LIFT COMPRESSOR Gender Identity Male 05/10/2023 1:59 PM TOP LIFT COMPRESSOR Sexual Orientation Not on file documented as of this encounter Progress Notes * Darryl Estrada MD - 04/22/2013 2:58 PM CST Progress Note Created by: Darryl Estrada M.D. DATE: 04/10/2013 SHEILA JADE DATE OF : 1935 AGE: [age] years old Referring Physician: TRIP VILLALOBOS Referring Clinic: [facility] CURRENT DIAGNOSES 1. - CAD, 414.00 2. - Hyperlipidemia, 272.4 3. Status post-PTCA, V45.82 4. - Hypertension, benign, 401.1 ALLERGIES Ramipril, Dry cough MEDICATIONS (prior to changes made today) 1. Aspirin 81 Mg Tablet, 1 p.o. daily 2. Citracal + D 315-200 mg-unit Tablet, 1 p.o. daily 3. Crestor 40 Mg Tablet, 1 qHS 4. Daily Multivitamin Tablet, 1 p.o. daily 5. fish oil-dha-epa 1,200-144-216 mg capsule, 1 p.o. daily 6. Garlic Tablet, 1 p.o. daily 7. Glucosamine Chondroitin MaxStr 500-400 mg Capsule, 1 p.o. daily 8. Green Tea [place] Extract 315 mg Capsule, 1 p.o. daily 9. lutein 10 mg tablet, 1 p.o. daily 10. Lysine 500 Mg Tablet, 1 p.o. daily 11. Nitrostat 0.4 mg tablet, sublingual, 1 Tab Sublingual - May Repeat Every 5 Minutes x2 For Chestpain 12. Omeprazole 20 mg Tablet, Delayed Release (E.C.), 2 p.o. daily 13. Trazodone 50 Mg Tablet, 1/2 tab qHS 14. Vitamin C 500 mg Tablet, 1 p.o. daily 15. Vitron-C 65 mg iron- 125 mg tablet,delayed release (DR/oral, 2 p.o. daily 16. Zetia 10 mg tablet, 1 p.o. qHS CHIEF COMPLAINTS Cardiac Assessment HISTORY OF PRESENT ILLNESS I again had the pleasure of seeing your patient, Sheila Jade, at the [facility] for evaluation of coronary artery disease. 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 This vessel underwent angioplasty. He had moderate disease in the left anterior descending artery at that time. His last stress echocardiogram was done on January 20, 2011 and demonstrated no areas of ischemia or infarction. The ejection fraction was 55% to 60%. A small inferolateral wall motion abnormality that was previously noted was no longer seen. The patient has had anemia, which has been well treated withiron supplementation. He has not smoked for 20 years and has remained sober from alcohol for five years. His fasting lipid profile from your office was under excellent control. He continues to eat ice cream each night and has difficulties maintaining his weight. He denies PND, orthopnea, peripheraledema, syncope, or presyncope. He is not exercising as much as he should, but denies angina pectoris or shortness of breath. On physical exam, his current blood pressure was 130/80. Pulse was 64 and regular. Weight was 226 pounds, which was unchanged from last year. BMI was 28. Chest was clear to auscultation. Cardiac examrevealed a regular rate and rhythm. S1 and S2 were normal. There was an S4 gallop. No S3 or murmur.No JVD. Abdomen and extremities are benign. PAST HISTORY Past Medical Illnesses: hypertension, IBS, GERD. 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 PSYCHIATRIC denies any history of depression, substance abuse or change in cognitive functions. ENDOCRINE hyperlipidemia HEMATOLOGICAL/IMMUNOLOGIC seasonal allergies, B12 deficiency, and pernicious anemia with increased MCV PHYSICAL EXAMINATION VITAL SIGNS: Blood Pressure: 130/80Sitting, Right arm, large cuff Pulse- 64.00/min. Weight- 226.00 lbs. Height- 75.00 BMI Measurement: [...] time, person and place. MEDICATIONS UPDATED/STARTED TODAY: fish oil-dha-epa 1,200-144-216 mg capsule, 1 p.o. daily, #0 (Zero) Vitron-C 65 mg iron- 125 mg tablet,delayed release (DR/oral, 2 p.o. daily, #0 (Zero) IMPRESSIONS/PLAN 1. Sheila Jade is a delightful 77-year-old male with known coronary artery disease. He is currently stable. His last stress test was performed in 2010 and did not reveal any ischemia or infarction. I have made no medication changes. I would not repeat a stress test until 2016 if he remains angina free. 2. Hyperlipidemia with a high Lp(a). His LDL goal remains at less than 70. He is at that goal and is doing well. 3. Alcoholism. The patient has been sober for five years. 4. Again, we discussed diet, exercise, and weight loss for greater than 50% of the 30 minute visit. Thank you very much for allowing me to help care for this delightful patient. I will see him again in one year or earlier on a p.r.n basis as you direct. TODAYS ORDERS 1. Discussed Diet and Weight loss Today 2. Return Visit 1 year Darryl Estrada M.D. documented in this encounter Plan of Treatment Not on file documented as of this encounter Visit Diagnoses Not on filedocumented in this encounter Care Teams Superintendent System Operation Relationship Specialty Start Date End Date DoctorShannan MD PCP - General 07/06/01 04/14/14 Trip Villalobos MD PCP - General Family Practice 04/15/14 Williams Muñoz MD [address] [place] [address] Assigned Heart and Vascular Provider 04/05/20 12/12/20 Carlo Ramirez PA-C [address] [address] Assigned Heart and Vascular Provider 12/13/20 06/17/22 Williams Muñoz MD [address] [place] [address] Cardiovascular Disease 02/21/22 Williams Muñoz MD [address] [place] [address] [place] [address] Assigned Heart and Vascular Provider 06/18/22 07/22/22 Carlo Ramirez PA-C [address] [facility] [address] Assigned Heart and Vascular Provider 07/23/22 documented as of this encounter
--- OUTSIDE RECORDS SUMMARY | 2023-09-13 13:29 | XMS_ITS | Encounter Summary ---
Author Name Unknown Organization [facility] Address [address] [place] [address]. [place] [address] Care Team Providers Care Qa Engineer Name Role Phone Shannan Alvarez MD Primary Care Provider UnavailTrip Cornejo MD Primary Care Provider [phone] Williams Muñoz MD Unavailable Ramirez, Carlo Alfonso PA-C Unavailable [phone] Williams Muñoz MD Unavailable Williams Muñoz MD Unavailable Ramirez, Carlo Alfonso PA-C Unavailable [phone] Encounter Details Date Type Department Care Team (Late st Contact Info) Description 11/10/2005 Office Visit-[facility] [address] [place] [address] Unknown, MD Antonio Social History Tobacco Use Types Packs/Day Years Used Date Smoking Tobacco: Never Assessed Sex and Gender Information Value Date Recorded Sex Assigned at Male 05/10/2023 1:59 PM RECYCLING COORDINATOR Gender Identity Male 05/10/2023 1:59 PM RECYCLING COORDINATOR Sexual Orientation Not on file documented as of this encounter Progress Notes * Unknown, MD Antonio - 11/17/2005 1:39 PM CDT Progress Note Created by: Darryl Estrada M.D. DATE: 11/10/2005 SHEILA JADE DATE OF : 1935 AGE: [age] years old Referring Physician: HECTOR HADLEY Referring Clinic: [facility] CURRENT DIAGNOSES 1. Personal History Of Alcoholism, V11.3 2. - Hyperlipidemia, 272.4 3. - CAD, 414.00 4. 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 - Hypertension, benign, 401.1 6. Status post-PTCA, V45.82 ALLERGIES altace, Dry,hacky cough MEDICATIONS (including any changes made today) 1. Lysine 500 mg, 1 p.o. q.d. 2. garlic 1000 mg, 1250mg qd 3. Crestor 20 mg, 1 p.o. q.d. 4. Diovan Hct 12.5 Mg-160 Mg, 1 p.o. q.d. 5. Zetia 10 Mg, 1 p.o. q.d. 6. Citracal Liquitab 500 mg, 1 p.o. q.d. 7. Aspirin 81 mg, 1 p.o. q.d. 8. Doxepin Hydrochloride 25 mg, 1 qHS CHIEF COMPLAINTS Followup of - CAD HISTORY OF PRESENT ILLNESS I again had the pleasure of seeing your patient, Sheila Jade, at [facility] for evaluation of coronary artery disease. As you may recall, this patient is a delightful 70-year-old male status post circumflex myocardial infarction with posterolateral [place], and angioplasty of the circumflexartery in 1992. He had moderate disease within his LAD at that time. 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 He has done well since that time without recurrent angina. He does have occasional chest aching while driving, but not with activities. The patient has a history ofprobable alcoholism and continues to drink two to four ounces of alcohol per day. He denies syncopeor presyncope. He is status post gastrectomy and vagotomy for peptic ulcer disease. The patient hasa history of Lp(a) elevation, with his LDL goal of less than 70. His most recent lipid profile dated 11/08/05 shows triglycerides 111, total cholesterol 208, HDL 95, LDL 91, with an ALT of 36. The patient was previously being treated for hyperhomocystinemia. We have now stopped his Folgard and folicacid due to the NORVIT study which indicated that treatment for hyperhomocystinemia is not helpful.The patient continues to walk for 30 minutes each day without angina. He is on a generally low fat diet but does have increased red meat consumption. He does not have a history of diabetes. On physical exam, current blood pressure is 128/80, pulse is 96 and regular. Weight is stable. 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 Weight- 207.00 lbs. Height- 75.00 Temperature- .00 CONSTITUTIONAL cooperative, [...] time, person and place. MEDICATIONS UPDATED TODAY: Crestor 20 mg, 1 p.o. q.d., #90 Diovan Hct 12.5 Mg-160 Mg, 1 p.o. q.d., #90 Zetia 10 Mg, 1 p.o. q.d., #90 MEDICATION STOPPED TODAY: Folic Acid 1 Mg, Folgard Rx 2.2 Mg, Zocor 40 Mg and Ferrous Sulfate 324 mg IMPRESSIONS/PLAN 1. Sheila Jade is a delightful 70-year-old male with known coronary artery disease who appears stable. We will repeat his stress echocardiogram in January of this year. We will evaluate his ongoing chest achiness and his LAD distribution. 2. Hyperlipidemia with high Lp(a). We will try to adjust his LDL cholesterol down below 70 by changing his Zocor to Crestor 20 mg p.o. q.d. I will keep you informed of these results when we recheck it in six weeks. Thank you very much for allowing me to help care for this delightful patient. I did spend 30 minutes with the patient, over 50% of that time counseling on diet, exercise, and weight loss. Should you have any questions regarding his care, please feel free to contact me at any time in the future. TODAYS ORDERS 1. Return Visit 1 year 2. Treadmill Stress Echo 3 months Darryl Estrada M.D. documented in this encounter Plan of Treatment Not on file documented as of this encounter Visit Diagnoses Not on filedocumented in this encounter Care Teams Qa Engineer Relationship Specialty Start Date End Date Doctor, MD Shannan PCP - General 07/06/01 04/14/14 Trip Villalobos MD PCP - General Family Practice 04/15/14 Williams Muñoz MD [address] [place] [address] Assigned Heart and Vascular Provider 04/05/20 12/12/20 Carlo Ramirez PA-C [address] [place] [address] Assigned Heart and Vascular Provider 12/13/20 06/17/22 Williams Muñoz MD [address] [place] [address] Cardiovascular Disease 02/21/22 Williams Muñoz MD [address] [place] [address] Assigned Heart and Vascular Provider 06/18/22 07/22/22 Carlo Ramirez PA-C [address] [place] [address] Assigned Heart and Vascular Provider 07/23/22 documented as of this encounter
--- OUTSIDE RECORDS SUMMARY | 2023-09-13 13:29 | XMS_ITS | Encounter Summary ---
Author Name Unknown Organization [facility] Address [address] [place] [address]. [place] [address] Care Team Providers Care Ship Surveyor Name Role Phone Doctor, Shannan CASTANEDA Primary Care Provider UnavailTrip Cornejo MD Primary Care Provider [phone] Williams Muñoz MD Unavailable RamirezCarlo PA-C Unavailable [phone] Williams Muñoz MD Unavailable Williams Muñoz MD Unavailable Ramirez, Carlo Alfonso PA-C Unavailable [phone] Encounter Details Date Type Department Care Team (Late st Contact Info) Description 08/07/2008 Office Visit-[facility] [address] [place] [address] Darryl Estrada MD Social History Tobacco Use Types Packs/Day Years Used Date Smoking Tobacco: Never Assessed Sex and Gender Information Value Date Recorded Sex Assigned at Male 05/10/2023 1:59 PM CAST ASSOCIATE Gender Identity Male 05/10/2023 1:59 PM CAST ASSOCIATE Sexual Orientation Not on file documented as of this encounter Progress Notes * Darryl Estrada MD - 08/11/2008 11:23 AM CDT Progress Note Created by: Darryl Estrada M.D. DATE: 08/07/2008 SHEILA JADE DATE OF : 1935 AGE: [age] years old Referring Physician: AVA CARVER Ref[facility] CURRENT DIAGNOSES 1. - CAD, 414.00 2. - Hypertension, benign, 401.1 3. Status post-PTCA, V45.82 4. - Hyperlipidemia, 272.4 ALLERGIES altace, Dry,hacky cough MEDICATIONS (prior to changes made today) 1. Crestor 20 Mg, 1 p.o. q.d. 2. Lysine 500 mg, 1 p.o. q.d. 3. Citracal Liquitab 500 mg, 1 p.o. q.d. 4. Nitrostat 0.4 mg, Take as Directed 5. Tylenol 500 mg, prn 6. Trazodone Hydrochloride 50 mg, Take as Directed 7. multivitamin daily, 1 p.o. daily 8. Campral 333 mg, 2 p.o. t.i.d. 9. Nexium 40 Mg., 1 p.o. b.i.d. 10. Ferrous Sulfate 325 mg, 1 p.o. daily 11. Aspirin 81 mg, 1 p.o. q.d. CHIEF COMPLAINTS Followup of - CAD HISTORY OF PRESENT ILLNESS I again had the pleasure of seeing your patient, Sheila Jade, at [facility] for evaluation of his coronary artery disease. The patient is status post circumflex artery myocardial infarction with posterolateral [place] and angioplasty of the circumflex artery in 1992. He had moderate diseasein his LAD at that time as well. His last stress echocardiogram completed in 2005 was normal. The patient reached a crisis with his alcohol dependency and was hospitalized in inpatient treatment at the [facility] for 28 days, being recently released. He was becoming very weak, using a walker, and in fact had been hospitalized numerous times with metabolic and electrolyte derangements. He is feeling considerably better since that time. Because of lower blood pressure and dizziness, we have taken him off of his beta ying and hydrochlorothiazide and ARB. He has just recently in the last weekstarted back on his Crestor and remains on aspirin. His most recent lipid profile from July [address] [facility] included total cholesterol of 231, triglycerides 98, HDL 58, LDL 153. His glucosewas 98 at that time. Of note, the patient has an MCV of 100.9, possibly even larger prior to that, consistent with his alcoholism. His vitamin B12 was in the normal range, as was his folate. From perusing his [facility] test results, his MCV is gradually improving. The patient denies angina. He is starting to do some walking and exercise. He denies PND, orthopnea, peripheral edema, syncope, or presyncope. On physical exam, current blood pressure is 125/78, pulse is 60 and regular. Current weight is 201 pounds compared to 202 pounds in October,. Chest is clear to auscultation. Cardiac exam: Regular rate and rhythm. Normal S1 and S2 with an S4 gallop, but no S3 or murmur. No JVD. Abdomen and extremities are benign. He does walk with a somewhat pronounced wide gait and some instability with heavy-looking legs. PAST HISTORY Past Medical Illnesses: hypercholesterolemia, peptic ulcer disease, carcinoma of the prostate, Alcohol abuse,inpatient treatment [facility] 07/28 Past Cardiac Illnesses: S/P myocardial infarction-posterolateral [...] HISTORY: Father - Age 66, 56 with [place] and from aortic aneurys and CAD; CARDIAC RISK FACTORS Tobacco Abuse: negative, used to smoke, but quit, 1992; Family History of Heart Disease: male55 y/o, positive; Hyperlipidemia: positive, LDL goal<LT>70; Hypertension: controlled by medication, positive; Diabetes Mellitus: negative; Prior History of Heart Disease: positive; Obesity:BMI<LT>25 (Normal), negative; Sedentary Life Style:positive; Age:positive ; LDL Goal <LT> 100 SOCIAL HISTORY Alcohol Use - history of alcohol abuse, currently not drinking; Smoking - used to smoke but quit and quit 05-28-92; Diet - regular diet without modifications and caffeine use-none; Lifestyle - , children and 8; Exercise - some exercise and walking; Seat Belt Use - always; Occupation - retired; Residence - lives with ; Place of - [place]; 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 INTEGUMENTARY denies any change in hair or nails, rashes, or skin lesions. EYES wears eye glasses/contact lenses EARS, NOSE, THROAT, MOUTH partial hearing loss RESPIRATORY wheezing, tickle in throat causes dry cough CARDIOVASCULAR negative for palpitations, chest pain, orthopnea, [...] MCV PHYSICAL EXAMINATION VITAL SIGNS: Blood Pressure: 125/78 Sitting, Right arm, large cuff Pulse- 60.00/min. Weight- 200.80 lbs. Height- 75.00 Temperature- .00 CONSTITUTIONAL cooperative, [...] time, person and place. MEDICATIONS UPDATED/STARTED TODAY: Tylenol 500 mg, prn, 0 Trazodone Hydrochloride 50 mg, Take as Directed, 0 multivitamin daily, 1 p.o. daily, 0 Campral 333 mg, 2 p.o. t.i.d., 0 Nexium 40 Mg., 1 p.o. b.i.d., 0 Ferrous Sulfate 325 mg, 1 p.o. daily, 0 MEDICATIONS REFILLED/STOPPED TODAY: Zetia 10 Mg 1 p.o. q.d. #90 Physician Order, Diovan Hct 12.5 Mg-160 Mg 1 p.o. q.d. #90 Physician Order, garlic 1000 mg 1250mg qd 0 Physician Order and Nexium 40 mg. 1 p.o. q.d. 0 Refill ASSESSMENT: 1. Sheila Jade is a delightful 72-year-old male with known coronary artery disease who is stable at this time. He has not had recurrent angina. We are going to repeat a stress echocardiogram in January of this year. This will give him a little more time to recover from his recent hospitalization. We will be especially looking for LAD or circumflex artery ischemia. 2. History of hyperlipidemia.He has a high Lp(a) and we will try to maintain an LDL cholesterol below 70. In the past he has required the use of Zetia as well. I have asked him to obtain a fasting lipid profile and ALT in six weeks, and this will be faxed to my office. 3. I have elected not to restart the patient's beta ying at this time because of his low heart rate. We will consider restarting an CARO inhibitor or an ARBin six months should his blood pressure allow. For now, however, I see no reason to restart these medications as long as he is stable. I would like to see him on a beta ying but his heart rate will not permit it for now. 4. Alcohol treatment. The patient is now staying sober and doing well. He will continue to progress and he is taking one day at a time as appropriate. Thank you very much for allowing me to help care for this delightful patient. Should you have any questions regarding his care, please feel free to contact me at any time in the future. TODAYS ORDERS 1. Return Visit 6 months 2. Treadmill Stress Echo 6 months Darryl Estrada M.D. documented in this encounter Plan of Treatment Not on file documented as of this encounter Visit Diagnoses Not on filedocumented in this encounter Care Teams Ship Surveyor Relationship Specialty Start Date End Date Shannan Alvarez MD PCP - General 07/06/01 04/14/14 Trip Villalobos MD PCP - General Family Practice 04/15/14 Williams Muñoz MD [address] [place] [address] Assigned Heart and Vascular Provider 04/05/20 12/12/20 Carlo Ramirez PA-C [address] [place] [address] Assigned Heart and Vascular Provider 12/13/20 06/17/22 Williams Muñoz MD [address] [place] [address] Cardiovascular Disease 02/21/22 Williams Muñoz MD [address] [place] [address] Assigned Heart and Vascular Provider 06/18/22 07/22/22 Carlo Ramirez PA-C [address] [place] [address] Assigned Heart and Vascular Provider 07/23/22 documented as of this encounter
--- OUTSIDE RECORDS SUMMARY | 2023-09-13 13:29 | XMS_ITS | Encounter Summary ---
Author Name Unknown Organization [facility] Address [address] [place] [address]. [place] [address] Care Team Providers Care Mortician Helper Name Role Phone Trip Villalobos MD Primary Care Provider [phone] Carlo Ramirez PA-C Unavailable [phone] Williams Muñoz MD Unavailable Williams Muñoz MD Unavailable Carlo Ramirez PA-C Unavailable [phone] Encounter Details Date Type Department Care Team (Late st Contact Info) Description 05/19/2022 [facility] [address] [place] [address] Williams Muñoz MD [address] [facility] [address] [place] [address] Social History Tobacco Use Types Packs/Day Years Used Date Smoking Tobacco: Former Smokeless Tobacco: Never Comments:Quit 1992 Alcohol Use Standard Drinks/Week Comments No 0 (1 standard drink = 0.6 oz pur e alcohol) none since 2008 Sex and Gender Information Value Date Recorded Sex Assigned at Male 05/10/2023 1:59 PM ENVIRONMENT ARTIST Gender Identity Male 05/10/2023 1:59 PM ENVIRONMENT ARTIST Sexual Orientation Not on file COVID-19 Exposure Response Date Recorded In the last 10 days, have yo u been in contact with someone who was confirmed or suspected to have Coronavirus/COVID-19? No / Unsure 05/03/2022 8:41 AM ENVIRONMENT ARTIST documented as of this encounter Plan of Treatment Not on file documented as of this encounter Visit Diagnoses Not on filedocumented in this encounter Care Teams Mortician Helper Relationship Specialty Start Date End Date Trip Villalobos MD PCP - General Family Practice 04/15/14 Carlo Ramirez PA-C [address] [place], [place] [address] Assigned Heart and Vascular Provider 12/13/20 06/17/22 Williams Muñoz MD [address] [place], [place] [address] Cardiovascular Disease 02/21/22 Williams Muñoz MD [address] [place] [address] Assigned Heart and Vascular Provider 06/18/22 07/22/22 Carlo Ramirez PA-C [address] [place], [place] [address] Assigned Heart and Vascular Provider 07/23/22 documented as of this encounter
--- OUTSIDE RECORDS SUMMARY | 2023-09-13 13:29 | XMS_ITS | Encounter Summary ---
Author Name Unknown Organization [facility] Address [address] [place] [address]. [place] [address] Care Team Providers Care Drill Operator Pneumatic Name Role Phone Shannan Alvarez MD Primary Care Provider UnavailTrip Cornejo MD Primary Care Provider [phone] Williams Muñoz MD Unavailable Ramirez, Carlo Alfonso PA-C Unavailable [phone] Williams Muñoz MD Unavailable Williams Muñoz MD Unavailable Ramirez, Carlo Alfonso PA-C Unavailable [phone] Encounter Details Date Type Department Care Team (Late st Contact Info) Description 2004 Office Visit-[facility] [address] [place] [address] Unknown, MD [place] Social History Tobacco Use Types Packs/Day Years Used Date Smoking Tobacco: Never Assessed Sex and Gender Information Value Date Recorded Sex Assigned at Male 05/10/2023 1:59 PM HEAD CHARGER Gender Identity Male 05/10/2023 1:59 PM HEAD CHARGER Sexual Orientation Not on file documented as of this encounter Progress Notes * Unknown, MD [place] - 09/21/2004 8:28 AM CDT Progress Note Created by: Darryl Estrada M.D. DATE: 2004 SHEILA JADE DATE OF : 1935 AGE: [age] years old Referring Physician: HECTOR HADLEY Referring Clinic: [facility] INTERNAL MEDICINE CURRENT DIAGNOSES 1. [...] 1 p.o. q.d. 4. Folic Acid 1 mg, 1 p.o. q.d. 5. Citracal Liquitab 500 mg, 1 p.o. q.d. 6. Diovan 160 mg, 1 p.o. q.d. 7. Hctz 25 Mg, 1/2 tab q.d. 8. Ferrous Sulfate 324 mg, 1 p.o. q.d. 9. Aspirin 81 mg, 1 p.o. q.d. 10. Doxepin Hydrochloride 25 mg, 1 p.o. qHS 11. Zocor 40 mg, 1 p.o. qPM 12. Zetia 10 mg, 1 p.o. q.d. CHIEF COMPLAINTS F/u on lipid/alt HISTORY OF PRESENT ILLNESS I again had the pleasure of seeing your patient, Sheila Jade, at [facility] on 2004. This is Mr. Jade's birthday. As you may recall, this patient is a delightful 69-year-old male status post small circumflex myocardial infarction and posterolateral myocardial infarction with angioplasty of his circumflex artery in 1992. He had moderate disease within his LAD at that time.The patient decided to retire from [employer] shortly thereafter. He has done well since that time without recurrent angina. The patient's liver function tests were markedly abnormal last year, felt to be due to excessive alcohol. He was to have a hemorrhoidectomy but this was postponed dueto the diagnosis of prostate cancer as well. The patient had a radical prostatectomy on the without complications. He was placed in an alcohol detox unit for 36 hours to verify that he was not going to go into withdrawal or DTs. He did well but he continues to drink now one drink per day. We had a candid discussion regarding the fact that he should not be drinking. At this point he has also been noted to have iron deficiency anemia. He is status post gastrectomy and vagotomy forpeptic ulcer disease. He has now been started on iron supplementation. He denies angina, syncope, or presyncope. The patient is somewhat lightheaded and becomes sweaty and weak if he walks postprandially. The patient has a history of normal triglycerides and very high HDL, along with high LDL cholesterol. He also has a history of Lp(a) elevation and his LDL goal that we are currently using is less than 70. He does not have a history of diabetes. He is walking three to four times per week for 30minutes without problems. The patient's most recent lipid profile includes on August 31 triglycerides of 59, total cholesterol 187, HDL 96, LDL 79, and ALT of 21. We have recently added Zetia 10 mg aswell. On physical exam, current blood pressure is 120/70, pulse is 68 and regular. Chest is clear. Cardiac exam: Regular rate and rhythm. Normal S1 and S2 with an S4 gallop, but no S3 or murmur. No JVD. Abdomen is benign. Extremities are without cyanosis, clubbing, or edema. PAST HISTORY Past Medical Illnesses: hypercholesterolemia, peptic ulcer disease Past Cardiac Illnesses: S/P myocardial infarction-posterolateral May [...] HISTORY: Father - Age 66, 56 with [place] and from aortic aneurys and CAD; CARDIAC RISK FACTORS Tobacco Abuse: negative, used to smoke, but quit, 1992; Family History of Heart Disease: male55 y/o, positive; Hyperlipidemia: controlled, positive; Hypertension: controlled by medication, positive; Diabetes Mellitus: negative; Prior History of Heart Disease: positive; Obesity:BMI<LT>25 (Normal), negative; Sedentary Life Style:positive; Age:positive REVIEW OF SYSTEMS GENERAL weight gain INTEGUMENTARY denies any change in hair or nails, rashes, or skin lesions. EYES wears eye glasses/contact lenses EARS, NOSE, THROAT, MOUTH partial hearing loss RESPIRATORY denies dyspnea, cough, wheezing or hemoptysis. CARDIOVASCULAR negative for palpitations, chest pain, orthopnea, PND, peripheral edema, syncope or claudication. ABDOMINAL excess gas GENITOURINARY-MALE recent history of prostate cancer and radical prostatectomy last week MUSCULOSKELETAL denies any history of venous insufficiency, arthritic symptoms or back problems. NEUROLOGICAL denies any history of recurrent strokes, TIA, or seizure disorder. PSYCHIATRIC denies any history of depression, substance abuse or change in cognitive functions. ENDOCRINE hyperlipidemia HEMATOLOGICAL/IMMUNOLOGIC seasonal allergies PHYSICAL EXAMINATION VITAL SIGNS: Blood Pressure: 120/70 Sitting, Right arm, large cuff Pulse- 68.00/min. Weight- 209.00 lbs. Height- 75.00 Temperature- .00 [...] time, person and place. MEDICATIONS UPDATED TODAY: Ferrous Sulfate 324 mg, 1 p.o. q.d., 0 Aspirin 81 mg, 1 p.o. q.d., 0 Doxepin Hydrochloride 25 mg, 1 p.o. qHS MEDICATION STOPPED TODAY: Folgard Rx 2.2 Mg IMPRESSIONS/PLAN ASSESSMENT: 1. This patient has known coronary artery disease which is currently stable. The last stress echocardiogram last January demonstrated no areas of ischemia or infarction. 2. History of hyperlipidemia with high Lp(a) and LDL cholesterol. His LDL is now approaching 70 and we will continue to follow.We will recheck this in six months. Of note, his ALT has normalized with him off most of his alcohol. 3. Alcoholism. I have again discussed this issue with him and would appreciate if you would also broach this subject. Thank you very much for allowing me to help care for this delightful patient. I will plan on seeinghim again in six months, or earlier on a p.r.n. basis as you direct. Should you have any questions regarding his care, please feel free to contact me at any time in the future. TODAYS ORDERS 1. Return Visit 6 months Darryl Estrada M.D. documented in this encounter Plan of Treatment Not on file documented as of this encounter Visit Diagnoses Not on filedocumented in this encounter Care Teams Drill Operator Pneumatic Relationship Specialty Start Date End Date Doctor, MD Shannan PCP - General 07/06/01 04/14/14 Trip Villalobos MD PCP - General Family Practice 04/15/14 Williams Muñoz MD [address] [place] [address] Assigned Heart and Vascular Provider 04/05/20 12/12/20 Carlo Ramirez PA-C [address] [place] [address] Assigned Heart and Vascular Provider 12/13/20 06/17/22 Williams Muñoz MD [address] [place] [address] Cardiovascular Disease 02/21/22 Williams Muñoz MD [address] [place] [address] Assigned Heart and Vascular Provider 06/18/22 07/22/22 Carlo Ramirez PA-C [address] [place] [address] Assigned Heart and Vascular Provider 07/23/22 documented as of this encounter
--- OUTSIDE RECORDS SUMMARY | 2023-09-13 13:30 | XMS_ITS | Encounter Summary ---
Author Name Unknown Organization [facility] Address [address] [place] [address]. [place] [address] Care Team Providers Care Driver Medic Name Role Phone Shannan Alvarez MD Primary Care Provider UnavailTrip Cornejo MD Primary Care Provider [phone] Williams Muñoz MD Unavailable Ramirez, Carlo Alfonso PA-C Unavailable [phone] Williams Muñoz MD Unavailable Williams Muñoz MD Unavailable Ramirez, Carlo Alfonso PA-C Unavailable [phone] Encounter Details Date Type Department Care Team (Late st Contact Info) Description 03/15/2004 Office Visit-[facility] [address] [place] [address] Unknown, MD [place] Social History Tobacco Use Types Packs/Day Years Used Date Smoking Tobacco: Never Assessed Sex and Gender Information Value Date Recorded Sex Assigned at Male 05/10/2023 1:59 PM INSPECTOR CONVEYOR LINE Gender Identity Male 05/10/2023 1:59 PM INSPECTOR CONVEYOR LINE Sexual Orientation Not on file documented as of this encounter Progress Notes * Unknown, MD [place] - 03/18/2004 10:44 AM CDT Progress Note Created by: Darryl Estrada M.D. DATE: 03/15/2004 SHEILA JADE DATE OF : 1935 AGE: [age] years old Referring Physician: ARSENIO CACERES Referring Clinic: [facility] CURRENT DIAGNOSES 1. Personal History Of Alcoholism, V11.3 2. - Hyperlipidemia, 272.4 3. - CAD, 414.00 4. 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 - Hypertension, benign, 401.1 6. Status post-PTCA, V45.82 ALLERGIES NKA MEDICATIONS (including any changes made today) 1. HCTZ 25 mg, 1/2 tab q.d. 2. Lysine 500 mg, 1 p.o. q.d. 3. garlic 1000 mg, 1250mg qd 4. Folgard Rx 2.2 mg, 1 p.o. q.d. 5. Folic Acid 1 mg, 1 p.o. q.d. 6. Hydroco/APAP 5mg/ 500mg, PRN 7. Tequin 200 mg, 1 p.o. q.d. 8. Citracal Liquitab 500 mg, 1 p.o. q.d. 9. Altace 10 Mg, 1 p.o. q.d. 10. Folgard Rx 2.2 Mg, 1 p.o. q.d. CHIEF COMPLAINTS F/u on hyperlipidemia HISTORY OF PRESENT ILLNESS I had the pleasure of seeing your patient, Sheila Jade, at [facility] on March 15, 2004. As you may recall, this patient is a delightful 68-year-old male status post small circumflex myocardial infarction and posterolateral myocardial infarction with angioplasty of his circumflex artery in 1992. He also had a 60-70% LAD stenosis at that time. 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 He has done well since then without recurrent angina. More recently the patient's liver function tests were markedly abnormal. The patient was drinking excessively. He was initially due to have hemorrhoidectomy but this has been postponed due to the finding of prostate cancer. The patient had a radical prostatectomy on the 10 of March without complications. Initially he was placed in an alcohol detox unit for 36 hours to verify that he was not going to go into withdrawalor DTs. He did well. He remains sober. He denies headaches, seizures, syncope, or bleeding diathesis. He is status post gastrectomy and vagotomy for peptic ulcer disease without recurrence. He has anabnormal lipid profile in the past with normal triglycerides and very high HDL. His NMR LipoProfilehas been fairly normal. His Lp(a) has been elevated and we are using an LDL goal of 70 or less. He does not have a history of diabetes. He generally walks 30-45 minutes and denies shortness of breathor chest discomfort. On physical exam, current blood pressure is 110/70, pulse is 72 and regular. Chest is clear. Cardiac exam: Regular rate and rhythm with an S4 gallop but no murmur. No JVD. Abdomen is not palpated. Hehas an indwelling Lerma catheter and a leg bag. Extremities are without cyanosis, clubbing, or edema. [...] Cardiology Procedures-Noninvasive: stress echocardiogram April 2002, normal REVIEW OF SYSTEMS GENERAL feels well, no change in exercise tolerance., weight loss, 4 lbs INTEGUMENTARY denies any change in hair [...] allergies PHYSICAL EXAMINATION VITAL SIGNS: Blood Pressure: 110/70 Sitting, Left arm, large cuff Pulse- 72.00/min. Weight- 198.00 lbs. Height- 75.00 Temperature- .00 CONSTITUTIONAL cooperative, [...] time, person and place. MEDICATIONS UPDATED TODAY: Folgard Rx 2.2 mg, 1 p.o. q.d., 0 Folic Acid 1 mg, 1 p.o. q.d., 0 Hydroco/APAP 5mg/ 500mg, PRN Tequin 200 mg, 1 p.o. q.d. MEDICATION STOPPED TODAY: Folic Acid 1 mg, Aspirin Enteric Coated 81 mg and Zocor 40 Mg IMPRESSIONS/PLAN This patient has known coronary artery disease which is currently stable. The last stress echocardiogram January 20 demonstrated no areas of ischemia or infarction. The patient's laboratory tests onOct show triglycerides of 56, total cholesterol 278, HDL cholesterol greater than 100, VLDL 11, ALT 74, which is an improvement from the previous ALT of 146 in January. For now we will leave him off of his Zocor. He did restart this after surgery but I have asked him to stop it again. We will recheck his ALT in one month. Should it have normalized off alcohol and Zocor we will restart theZocor and recheck after six weeks. At that point we will also perform a fasting lipid profile. I will plan on seeing this patient again in six months. He will begin exercising as soon as he has healed from his recent surgery. Thank you very much for allowing me to help care for this delightful patient. Should you have any questions regarding his care, please feel free to contact me at any time in the future. TODAYS ORDERS 1. Return Visit 6 months Darryl Estrada M.D. Electronically signed by [facility] Data [employer]version at 10/04/2013 3:44 AM CDT documented in this encounter Plan of Treatment Not on file documented as of this encounter Visit Diagnoses Not on filedocumented in this encounter Care Teams Driver Medic Relationship Specialty Start Date End Date Shannan Alvarez MD PCP - General 07/06/01 04/14/14 Trip Villalobos MD PCP - General Family Practice 04/15/14 Williams Muñoz MD [address] [facility] [address] [place] [address] Assigned Heart and Vascular Provider 04/05/20 12/12/20 Carlo Ramirez PA-C [address] [address] Assigned Heart and Vascular Provider 12/13/20 06/17/22 Williams Muñoz MD [address] [facility] [address] [place] [address] Cardiovascular Disease 02/21/22 Williams Muñoz MD [address] [facility] [address] [place] [address] Assigned Heart and Vascular Provider 06/18/22 07/22/22 Carlo Ramirez PA-C [address] [address] Assigned Heart and Vascular Provider 07/23/22 documented as of this encounter
--- OUTSIDE RECORDS SUMMARY | 2023-09-13 13:30 | XMS_ITS | Encounter Summary ---
Author Name Unknown Organization [facility] Address [address] [place] [address]. [place] [address] Care Team Providers Care Junior Accounting Clerk Name Role Phone DoctorShannan MD Primary Care Provider UnavailTrip Cornejo MD Primary Care Provider [phone] Williams Muñoz MD Unavailable Ramirez, Carlo Alfonso PA-C Unavailable [phone] Williams Muñoz MD Unavailable Williams Muñoz MD Unavailable Ramirez, Carlo Alfonso PA-C Unavailable [phone] Encounter Details Date Type Department Care Team (Late st Contact Info) Description 01/23/2003 Office Visit-[facility] [address] [place] [address] Unknown, MD [place] Social History Tobacco Use Types Packs/Day Years Used Date Smoking Tobacco: Never Assessed Sex and Gender Information Value Date Recorded Sex Assigned at Male 05/10/2023 1:59 PM 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 DATE: 01/23/2003 SHEILA JADE DATE OF : 1935 AGE: [age] years old Referring Physician: ARSENIO CACERES CURRENT DIAGNOSES 1. - Hypertension, benign, 401.1 2. 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 - Hyperlipidemia, 272.4 4. - CAD, 414.00 5. Status post-PTCA, v45.82 ALLERGIES NKA MEDICATIONS 1. Lysine 500 mg, 1 p.o. q.d. 2. garlic 1000 mg, 1250mg qd 3. Aspirin Enteric Coated 81 mg, 1 p.o. q.d. 4. Zocor 40 Mg, 1 p.o. qHS 5. Altace 10 Mg, 1 p.o. q.d. 6. Folgard Rx 2.2 Mg, 1 p.o. q.d. CHIEF COMPLAINTS Followup of - Hyperlipidemia HISTORY OF PRESENT ILLNESS I again had the pleasure of seeing your patient, Sheila Jade, at [facility] on January 23, 2003. As you may recall, this patient is status post a small circumflex myocardial infarction and posterolateral [place], with angioplasty in 1992. 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 He has done well since that time without recurrent angina. He is walking nearly every day for 45 minutes per day. He denies shortness of breath, PND, orthopnea, or peripheral edema. He denies palpitations. He has had arthralgias in the past. He has a history of peptic ulcer disease and is status post gastrectomy and vagotomy. He denies headaches, seizure, syncope, or blee ding diathesis. This patient has a very abnormal fasting lipid profile with normal triglycerides, but HDL greater than 100. This persists even when performed today. We have sent this off for a LipoProfile, and it demonstrates that he is a pattern A with LDL cholesterol right around 100. Given his current fasting lipid profile with triglycerides of 54, total cholesterol of 230, and HDL cholesterol of greater pita462, I suspect that we can leave his medications the same. This patient has had a history of hyperhomocystinemia, and these labs were also checked today but are not yet available. On physical exam, current blood pressure is 170/108, pulse 88 and regular. The patient did not takehis medications today. Weight is 195 pounds. Chest is clear. Cardiac exam shows a regular rate and rhythm with an S4 gallop, but no S3 or murmur. Abdomen and extremities are benign. PAST HISTORY Past Medical Illnesses: no previous history of significant medical illnesses. Past Cardiac Illnesses: S/P myocardial infarction-posterolateral May 1992 Infectious Diseases: no previous history of significant infectious diseases. Surgical Procedures: no previous surgical procedures. Trauma History: no previous history of significant trauma. Cardiology Procedures-Invasive: no previous interventional or invasive cardiology procedures. Cardiology Procedures-Noninvasive: no previous non-invasive cardiovascular testing. FAMILY HISTORY: Father - Age 66, 56 with [place] and from aortic aneurys and CAD; CARDIAC RISK FACTORS Tobacco Abuse: negative, used to smoke, but quit; Family History of Heart Disease: male<GT>55y/o, positive; Hyperlipidemia: controlled, positive; Hypertension: controlled by medication, positive; Diabetes Mellitus: negative; Prior History of Heart Disease: positive; Obesity:BMI<LT>25 (Normal), negative; Sedentary Life Style:positive; Age:positive SOCIAL HISTORY Alcohol Use - drinks regularly; Smoking - does not smoke; Diet - regular diet; Lifestyle - ,children and 8; Exercise - exercises daily; Seat Belt Use - always; Occupation - retired; Residence- lives with ; Place of - [place]; REVIEW OF SYSTEMS GENERAL increased weight loss INTEGUMENTARY denies any change in hair or nails, rashes, or skin lesions. EYES wears eye glasses/contact lenses EARS, NOSE, THROAT, MOUTH denies any hearing loss, epistaxis, hoarseness or difficulty speaking. RESPIRATORY denies dyspnea, cough, wheezing or hemoptysis. CARDIOVASCULAR negative for palpitations, chest pain, orthopnea, PND, peripheral edema, syncope or claudication. ABDOMINAL denies ulcer disease, hematochezia or melena. MUSCULOSKELETAL denies any history of venous insufficiency, arthritic symptoms or back problems. NEUROLOGICAL denies any history of recurrent strokes, TIA, or seizure disorder. PSYCHIATRIC denies any history of depression, substance abuse or change in cognitive functions. ENDOCRINE denies any history of weight change, heat/cold intolerance, polydipsia, or polyuria HEMATOLOGICAL/IMMUNOLOGIC denies any food allergies, seasonal allergies, bleeding disorders. PHYSICAL EXAMINATION VITAL SIGNS: Blood Pressure: 170/108 Sitting, Right arm, large cuff Pulse- 88.00/min. Weight- 195.00 lbs. Height- .00 Temperature- .00 CONSTITUTIONAL cooperative, alert and oriented,well [...] time, person and place. MEDICATIONS UPDATED TODAY: Aspirin Enteric Coated 81 mg, 1 p.o. q.d., 0 Zocor 40 Mg, 1 p.o. qHS, #90 Altace 10 Mg, 1 p.o. q.d., #90 Folgard Rx 2.2 Mg, 1 p.o. q.d., #100 MEDICATION STOPPED TODAY: B Complex 100 Vitamin B Complex IMPRESSIONS/PLAN Sheila Jade is a delightful 67-year-old who has known coronary artery disease and is currently stable. I am concerned that his blood pressure will remain elevated despite 10 mg of Altace. We will recheck his blood pressure in three weeks, and should his blood pressure be elevated I would add hydrochlorothiazide for this. I will review his homocysteine level when it is done. The patient states that he had a stress echocardiogram in my office last April, but I do not have these results. I will obtain these, and if in fact we need to, we will repeat this in April before he returns to [place]. Thank you very much for allowing me to help care for this delightful patient. I will keep you informed of any medication changes as they occur. TODAYS ORDERS 1. Homocycsteine Today 2. B/P Check w/Nurse 3 weeks 3. Return Visit 6 months Darryl Estrada M.D. documented in this encounter Plan of Treatment Not on file documented as of this encounter Visit Diagnoses Not on filedocumented in this encounter Care Teams Junior Accounting Clerk Relationship Specialty Start Date End Date Shannan Alvarez MD PCP - General 07/06/01 04/14/14 Trip Villalobos MD PCP - General Family Practice 04/15/14 Williams Muñoz MD [address] [place] [id number] Assigned Heart and Vascular Provider 04/05/20 12/12/20 Carlo Ramirez PA-C [address] [id number] Assigned Heart and Vascular Provider 12/13/20 06/17/22 Williams Muñoz MD [address] [place] [id number] Cardiovascular Disease 02/21/22 Williams Muñoz MD [address] [place] [id number] Assigned Heart and Vascular Provider 06/18/22 07/22/22 Carlo Ramirez PA-C [address] [id number] Assigned Heart and Vascular Provider 07/23/22 documented as of this encounter
--- OUTSIDE RECORDS SUMMARY | 2023-09-13 13:30 | XMS_ITS | Encounter Summary ---
Author Name Unknown Organization [facility] Address [address] [place] [address]. [place] [address] Care Team Providers Care Hardener Helper Name Role Phone DoctorShannan MD Primary Care Provider UnavailTrip Cornejo MD Primary Care Provider [phone] Williams Muñoz MD Unavailable Ramirez, Carlo Alfonso PA-C Unavailable [phone] Williams Muñoz MD Unavailable Williams Muñoz MD Unavailable Ramirez, Carlo Alfonso PA-C Unavailable [phone] Encounter Details Date Type Department Care Team (Late st Contact Info) Description 10/02/2003 Office Visit-[facility] [address] [place] [address] Unknown, MD Antonio Social History Tobacco Use Types Packs/Day Years Used Date Smoking Tobacco: Never Assessed Sex and Gender Information Value Date Recorded Sex Assigned at Male 05/10/2023 1:59 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 DATE: 10/02/2003 SHEILA JADE DATE OF : 1935 AGE: [age] years old Referring Physician: ARSENIO CACERES Referring Clinic: [facility] CURRENT DIAGNOSES 1. - CAD, 414.00 2. - Hypertension, benign, 401.1 3. Status post-PTCA, v45.82 4. - Hyperlipidemia, 272.4 5. 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 HCTZ 25 mg, 1/2 tab q.d. 2. Folic Acid 1 mg, 1 p.o. q.d. 3. Lysine 500 mg, 1 p.o. q.d. 4. garlic 1000 mg, 1250mg qd 5. Aspirin Enteric Coated 81 mg, 1 p.o. q.d. 6. Citracal Liquitab 500 mg, 1 p.o. q.d. 7. Altace 10 Mg, 1 p.o. q.d. 8. Folgard Rx 2.2 Mg, 1 p.o. q.d. 9. Zocor 40 Mg, 1 p.o. qHS CHIEF COMPLAINTS HISTORY OF PRESENT ILLNESS: Sheila Jade is a delightful 68-year-old male, status post-small circumflex myocardial infarction and posterolateral myocardial infarction with angioplasty of the circumflex artery in 1992. He also had a 60 to 70 percent left anterior descending artery stenosis at that time. 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 He has done well since that time without recurrent angina. He is walking five days per week for 30 to 40 minutes each time. He denies shortness of breath but has some dyspnea on exertion. He has not had paroxysmal nocturnal dyspnea, orthopnea or peripheral edema. He denies palpitations. He has had some arthralgias, natali ecially in his hands. He has history of peptic ulcer disease and is status post- gastrectomy and vagotomy. He has no significant headaches, seizures, syncope or bleeding diathesis. He has had a very abnormal lipid profile in the past with normal triglycerides and very high HDL. We performed a NMR LipoProfile on this and it demonstrated pattern A with LDL cholesterol at goal. His current fasting lipid profile is again reviewed. This shows total cholesterol of 227, HDL of 137, LDL of 80, triglycerides of 49, and ALT that is mildly elevated at 48, though less so than last time. His basic metabolic profile is normal as well, including normal glucose. The patient also has known hyperhomocystinemia with his last value of 12.8 in January. His Lp(a) has been elevated in the past so his goal LDL is less than 80. PAST HISTORY Past Medical Illnesses: hypercholesterolemia, peptic ulcer disease Past Cardiac Illnesses: S/P myocardial infarction-posterolateral May 1992 Infectious Diseases: no previous history of significant infectious diseases. Surgical Procedures: appendectomy over 20 years ago, vagotomy and partial gastrectomy for PUD,1974 Trauma History: no previous history of significant trauma. 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 INTEGUMENTARY denies any change in hair or nails, rashes, or skin lesions. EYES wears eye glasses/contact lenses EARS, NOSE, THROAT, MOUTH partial hearing loss RESPIRATORY denies dyspnea, cough, wheezing or hemoptysis. CARDIOVASCULAR chest pain ABDOMINAL excess gas MUSCULOSKELETAL denies any history of venous insufficiency, arthritic symptoms or back problems. NEUROLOGICAL denies any history of recurrent strokes, TIA, or seizure disorder. PSYCHIATRIC denies any history of depression, substance abuse or change in cognitive functions. ENDOCRINE hyperlipidemia HEMATOLOGICAL/IMMUNOLOGIC seasonal allergies PHYSICAL EXAMINATION VITAL SIGNS: Blood Pressure: 118/72 Sitting, Right arm, large cuff Pulse- 80.00/min. Weight- 202.00 lbs. Height- 75.00 Temperature- .00 CONSTITUTIONAL cooperative, [...] time, person and place. MEDICATIONS UPDATED TODAY: HCTZ 25 mg, 1/2 tab q.d., 0 Folic Acid 1 mg, 1 p.o. q.d., #30 or #100 Vitamin C 500 mg, 1 p.o. q.d. Vitamin E 400 iu, 1 p.o. q.d. Citracal Liquitab 500 mg, 1 p.o. q.d. IMPRESSIONS/PLAN 1. Sheila Jade is a delightful 68-year-old male with known coronary artery disease, which is currently stable. His last stress echocardiogram was in April 2002. This was normal at that time. His blood pressure is currently well controlled. His lipid profile is also well controlled. We will continue him on the same medications. We will consider a stress echocardiogram after his next visit withme. 2. Hyperhomocystinemia. We would like this to be less than 12, and at this time we will increase his folic acid by adding 1 mg p.o. q.d. to his Folgard. We will recheck this in six months along with a fasting lipid profile. TODAYS ORDERS 1. Return Visit 6 months Darryl Estrada M.D. documented in this encounter Plan of Treatment Not on file documented as of this encounter Visit Diagnoses Not on filedocumented in this encounter Care Teams Hardener Helper Relationship Specialty Start Date End Date Shannan Alvarez MD PCP - General 07/06/01 04/14/14 Trip Villalobos MD PCP - General Family Practice 04/15/14 Williams Muñoz MD [address] [place] [address] Assigned Heart and Vascular Provider 04/05/20 12/12/20 Carlo Ramirez PA-C [address] [place] [address] Assigned Heart and Vascular Provider 12/13/20 06/17/22 Williams Muñoz MD [address] [place], [place] [id number] Cardiovascular Disease 02/21/22 Williams Muñoz MD [address] [place] [address] Assigned Heart and Vascular Provider 06/18/22 07/22/22 Carlo Ramirez PA-C [address] [place], [place] [address] Assigned Heart and Vascular Provider 07/23/22 documented as of this encounter
--- OUTSIDE RECORDS SUMMARY | 2023-09-13 13:30 | XMS_ITS | Encounter Summary ---
Author Name Unknown Organization [facility] Address [address] [place] [address]. [place] [address] Care Team Providers Care Basketball Player Name Role Phone Shannan Alvarez MD Primary Care Provider UnavailTrip Cornejo MD Primary Care Provider Williams Muñoz MD Unavailable Ramirez, Carlo Alfonso PA-C Unavailable [phone] Williams Muñoz MD Unavailable Williams Muñoz MD Unavailable Ramirez, Carlo Alfonso PA-C Unavailable [phone] Encounter Details Date Type Department Care Team (Late st Contact Info) Description 02/08/2002 Office Visit-[facility] [address] [place] [address] Unknown, MD Antonio Social History Tobacco Use Types Packs/Day Years Used Date Smoking Tobacco: Never Assessed Sex and Gender Information Value Date Recorded Sex Assigned at Male 05/10/2023 1:59 PM RN MDS Gender Identity Male 05/10/2023 1:59 PM RN MDS Sexual Orientation Not on file documented as of this encounter Progress Notes * Unknown, MD Antonio - 02/26/2002 10:17 AM CDT DATE: 02/08/2002 SHEILA JADE DATE OF : 1935 AGE: [age] years old Referring Physician: ARSENIO CACERES CURRENT DIAGNOSES 1. Status post-PTCA, v45.82 2. - Hyperlipidemia, 272.4 3. - CAD, 414.00 4. CAD, 414.9 ALLERGIES NKA MEDICATIONS 1. Lysine 500 mg, 1 p.o. q.d. 2. Aspirin 325 mg, 1 p.o. q.d. 3. garlic 1000 mg, 1250mg qd 4. B Complex 100 Vitamin B Complex, 1 p.o. q.d. 5. Altace 5 Mg, 1 p.o. q.d. 6. Zocor 40 Mg, 1 p.o. qHS CHIEF COMPLAINTS F/u HISTORY OF PRESENT ILLNESS I again had the pleasure of seeing your patient, Sheila Jade, at [facility] on February 08, 2002. As you may recall, this patient is status post a small circumflex myocardial infarctionand posterolateral wall myocardial infarction and angioplasty and 1993. 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 He has done well since that time without recurrent angina. He is exercising by walking 30 minutes per day. He denies shortness of breath, PND, orthopnea or peripheral edema. No palpitations. He does have some arthralgias. Recently he had a bout of nausea, vomiting and chills which have resolved. Hehas a history of previous peptic ulcer disease and is status post gastrectomy and vagotomy. He had a recent colonoscopy that was normal. He denies headaches, seizures or syncope. This patient has a very funny cholesterol result of triglycerides 49, total cholesterol 259, HDL isgreater than 100, LDL is not calculable with ALT of 112 and VLDL of 9.9. His lipids a year ago had an LDL of 104 and a HDL of 110 and his AST was slightly elevated. The patient's exam is essentially normal. His blood pressure is 135/90. Pulse is 60 and regular. Chest is clear. Cardiac exam shows a regular rate and rhythm with an S4 gallop but no murmur. Abdomen and extremities are benign. There are no bruits. PAST HISTORY Past Medical Illnesses: no previous [...] HISTORY: Father - Age 66, 56 with [place] and from aortic aneurys and CAD; CARDIAC RISK FACTORS Tobacco Abuse: negative, used to smoke, but quit; Family History of Heart Disease: male>55 y/o, positive; Hyperlipidemia: controlled, positive; Hypertension: controlled by medication, positive; Diabetes Mellitus: negative; Prior History of Heart Disease: positive; Obesity:BMI<25 (Normal), negative; Sedentary Life Style:positive; Age:positive SOCIAL HISTORY Alcohol Use - drinks regularly; Smoking - does not smoke; Diet - regular diet; Lifestyle - ,children and 8; Exercise - exercises daily; Seat Belt Use - always; Occupation - retired; Residence- lives with ; Place of - [place]; 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, recent chills, nausea-gone now and back to normal INTEGUMENTARY denies any change in hair or [...] disorders. PHYSICAL EXAMINATION VITAL SIGNS: Blood Pressure: 150/98 Sitting, Right arm, regular cuff 132/90 Sitting, Right arm, regular cuff Pulse- 60.00/min. Weight- 199.00 lbs. Height- .00 Temperature- .00 CONSTITUTIONAL cooperative, [...] time, person and place. MEDICATIONS UPDATED TODAY: Metoprolol Tartrate 50 mg, 1 p.o. b.i.d., 0 Metoprolol Tartrate 50 Mg, 1/2 tab b.i.d., 0 Altace 5 Mg, 1 p.o. q.d., #90 Zocor 40 Mg, 1 p.o. qHS, #90 MEDICATION STOPPED TODAY: Metoprolol Tartrate 50 mg, Vitamin E Capsule 400 iu, Vitamin C 500 mg, Diovan HCT 12.5 mg-160 mg, Metoprolol Tartrate 50 mg and Metoprolol Tartrate 50 Mg IMPRESSIONS/PLAN This patient has known coronary artery disease with is currently stable. I have taken the liberty of changing his Diovan to Altace given the results of the HOPE Trial. We will increase this dose or add hydrochlorothiazide as necessary to control his blood pressure. He is due to undergo a stress echocardiogram in the next two months. I will keep you informed of those results as well. I have asked this patient to stop his antioxidant medications given the results of the recent HATS Trial in [place], [place]. He will continue on the Zocor but we will carefully monitor his liver function tests. I have taken the liberty of sending off an Lp(a), homocysteine level and a [employer] NMR lipid profile to assess what type of HDL and LDL he has. I will keep you informed of these results as theyreturn. I will plan on seeing this patient again in a year. TODAYS ORDERS 1. Treadmill Stress Echo 3 months 2. Basic Metabolic Panel 1 month 3. Homocysteine 1 month 4. LP(a) 1 month 5. NMR LipoProfile 1 month 6. Return Visit 1 year Darryl Estrada M.D. documented in this encounter Plan of Treatment Not on file documented as of this encounter Visit Diagnoses Not on filedocumented in this encounter Care Teams Basketball Player Relationship Specialty Start Date End Date Shannan Alvarez MD PCP - General 07/06/01 04/14/14 Trip Villalobos MD PCP - General Family Practice 04/15/14 Williams Muñoz MD [address] [place] [address] Assigned Heart and Vascular Provider 04/05/20 12/12/20 Carlo Ramirez PA-C [address] [place] [address] Assigned Heart and Vascular Provider 12/13/20 06/17/22 Williams Muñoz MD [address] [place] [address] Cardiovascular Disease 02/21/22 Williams Muñoz MD [address] [place] [address] Assigned Heart and Vascular Provider 06/18/22 07/22/22 Carlo Ramirez PA-C [address] [place], [place] [address] Assigned Heart and Vascular Provider 07/23/22 documented as of this encounter
== END 2023-09-13 13:26 | disposition home or self-care (01) ==
PROVIDERS: PCP Family Medicine; Visit Provider Family Medicine
DX: C61 Malignant neoplasm of prostate (principal)
CPT/HCPCS: 84153